=== PATIENT | female | born 1945 | race Caucasian/White ===

== ENCOUNTER 2019-06-29 12:36 | Outpatient (CLI) | payer MEDICARE, BC ==
--- NOTE | 2019-06-29 13:55 | MRI ---
MR the lumbar spine without contrast: 06/29/2019 History: Fall, leg pain COMPARISON: None available TECHNIQUE: Multiplanar multisequence MR images were obtained of lumbar spine without IV contrast FINDINGS: On the basis of 5 lumbar type vertebral bodies, conus medullaris terminates at [id number] level. The sagittal STIR imaging demonstrates increased signal intensity on the basis of marrow edema at the L2 level. This is likely on the basis of acute fracture of the inferior endplate. No obvious osseous retropulsion. Please note that detailed assessment of the lumbar spine is markedly limited se condary to prominent patient motion artifact, particularly on the sagittal imaging. T12-L1:There is bilateral facet hypertrophy with disc space narrowing, disc desiccation, and mild dis c bulge. No significant central canal or neural foraminal stenosis. L1-2:Disc space narrowing, disc desiccation, and mild disc bulge. No significant central canal stenos is. Significant bilateral facet hypertrophy. Mild/moderate bilateral neural foraminal stenosis, left greater than right. L2-3:There is disc space narrowing and disc desiccation. There is a disc osteophyte complex with mild central canal stenosis. There is bilateral facet hypertrophy, left greater than right. Mild right and moderate left neural foraminal stenosis. L3-4:There is disc space narrowing with disc desiccation and posterior disc osteophyte complex. Mild central canal stenosis with moderate left lateral recess stenosis. Mild right neural foraminal stenosis and severe left neural foraminal stenosis. L4-5:There is disc desiccation with disc bulge and prominent bilateral facet hypertrophy/hypertrophy of the ligamentum flavum. There is moderate central canal stenosis/left lateral recess stenosis. There is mild bilateral neural foraminal stenosis. L5-S1:There is disc space narrowing with disc desiccation and mild disc bulge. There is prominent kapil ateral facet hypertrophy with severe right and mild left neural foraminal stenosis. Image retroperitoneal structures demonstrateno acute findings.. IMPRESSION: The study is quite limited secondary to motion artifact. Increased STIR signal on the basis of marrow edema noted within the L2 vertebral body suggesting acute fracture of the inferior endplate. No osseous retropulsion. This may be better assessed via CT examination of the lumbar spine. Prominent multilevel lumbar spine degenerative change as detailed above.
== END 2019-06-29 12:37 | disposition home or self-care (01) ==
LOC: TBSIIMAG 12:36
PROVIDERS: ATTEND Specialist
DX: M54.17 Radiculopathy, lumbosacral region (principal); M48.07 Spinal stenosis, lumbosacral region; R60.0 Localized edema; R93.7 Abnormal findings on diagnostic imaging of other parts of musculoskeletal system; M47.816 Spondylosis without myelopathy or radiculopathy, lumbar region
CPT/HCPCS: 72148

== ENCOUNTER 2020-04-23 19:07 | Inpatient (IN) | payer MEDICARE, BC ==
[~2020-04-23 19:07] MED LIST: Iopamidol-370 76% 500 ML 1 ML ONE
--- NOTE | 2020-04-23 19:24 | CT ---
CT HEAD WITHOUT IV CONTRAST COMPARISON: None HISTORY: Stroke alert. Right-sided weakness and right-sided facial droop with a aphasia. TECHNIQUE: Axial CT imaging at 5 mm intervals from vertex through skull base without contrast FINDINGS: There is decreased attenuation in the periventricular white matter which is nonspecific but likely re flective of chronic small vessel ischemic changes. There is mild cerebral volume loss. The ventricular system is normal in size, shape, and position for the degree of sulcal atrophy. There is no evidence of an acute infarction, hemorrhage, mass effect, or midline shift. Skull base has a normal CT appearance. Visualized paranasal sinuses are clear. Osseous structures appear intact. IMPRESSION: 1. No acute intracranial abnormality demonstrated. 2. Chronic small vessel ischemic changes and cerebral volume loss. 3. Above findings discussed Dr. Cordoba in the emergency department on 04/23/2020 at 1921 hours
[2020-04-23 19:27] LABS: #Eosinphils 0.1 thou/uL (0.0-0.7); #Lymphocytes 1.4 thou/uL (1.20-3.40); #Monocytes 0.5 thou/uL (0.11-0.59); #Neutrophils 1.8 thou/uL (1.40-6.50); %Basophils 0.2 % (0.0-1.0); %Lymphocytes 37.2 % (21.0-51.0); %Monocytes 13.2 % (0.0-10.0); %Neutrophils 47.4 % (42.0-75.0); Mean Corpuscular HGB CONC 35.6 g/dL (32.0-36.0); Mean Corpuscular Volume 95.4 fL (78.0-98.0); Mean Platelet Volume 7.4 fL (7.4-10.4); Platelet Count 172 thou/uL (130-400); RBC Distribution Width 11.4 % (11.5-14.5); Red Blood Cell (RBC) Count 3.54 mill/uL (4.20-5.40); White Blood Cell (WBC) Count 3.7 thou/uL (4.8-10.8)
[2020-04-23 19:39] LABS: PTT 24.3 sec (22.9-36.1)
[2020-04-23 19:40] LABS: Prothrombin Time 13.5 sec (12.0-14.7)
[2020-04-23 19:41] LABS: ALT (SGPT) 16 U/L (8-55); AST (SGOT) 24 U/L (5-34); Albumin 3.9 g/dL (3.4-4.8); Alkaline Phosphatase 81 U/L (40-110); Anion Gap 16 mmol/L (10-20); BUN (Urea Nitrogen) 12 mg/dL (9.8-20.1); Bilirubin, Total 0.2 mg/dL (0.2-1.2); CK (CPK) 67 U/L (29-168); Calc. Creatinine Clearance 0 mL/min (70-130); Calcium 8.6 mg/dL (7.8-10.44); Carbon Dioxide 24 mmol/L (23-31); Chloride 107 mmol/L (98-107); Estimated GFR-MDRD 60; Globulin 2.9 g/dL (2.4-3.5); Glucose 136 mg/dL (83-110); Potassium 4.5 mmol/L (3.5-5.1); Protein, Total 6.8 g/dL (6.0-8.3); Sodium 142 mmol/L (136-145)
--- NOTE | 2020-04-23 20:38 | RAD ---
EXAM: CHEST ONE VIEW HISTORY: Injury after falling at home. Right-sided facial droop and right-sided weakness. COMPARISON: None FINDINGS: The cardiac silhouette and pulmonary vasculature are within normal limits. No consolidation or pleura l fluid is seen. No obvious pneumothorax is identified, and there is no pleural fluid. There is mild increased density seen in the right midlung zone and at the right lung base also present on prio r study and may be related to area of scarring. There are right lateral rib fractures involving the third, fourth, and fifth ribs. Right lateral seco nd rib is obscured due to overlying structures. There is mild S-shaped scoliotic curvature of thoracolumbar spine. Osteopenia is present. Surgical clips again overlie each axillary region. IMPRESSION: Mildly displaced lateral right third, fourth, and fifth rib fractures. No obvious pneumothorax is see n, and there is no pleural effusion identified.
--- NOTE | 2020-04-23 20:46 | PDOC.FPRHP ---
- History of Present Illness Chief Complaint: R sided facial droop, R sided weakness History of Present Illness: 74 yo F presented via EMS after an unwitnessed fall at home. Daughter that lives with patient heard a noise and found patient lying on the floor of her bedroom. The right side of the patient's face was drooping, she was drooling and unable to form words. Patient's other daughter, Megan Montemayor, who is MPOA and a senior salesforce developer was present during our interview. She explains her mother has no history of strokes other than a possible TIA many years ago. She lives with the daughter that found her after the fall and typically performs all her own ADLs. Patient was unable to communicate effectively due to her expressive aphasia but did express that she was in pain. Her daughter explains she has chronic back pro blems and a known L1 and L4 compression fracture. ED Course: CTA revealed an occlusion of the left MCA and tPA therapy was initiated. - Allergies/Adverse Reactions Allergies Allergy/AdvReac Type Severity Reaction Status Date / Time iodine Allergy Verified 04/23/20 21:45 shellfish derived Allergy Verified 04/23/20 21:45 - Home Medications Medication Instructions Recorded Confirmed Type Albuterol Sulfate [Proventil Hfa] 90 mcg INH DAILY PRN 04/24/20 04/24/20 History Aspirin [Aspirin EC] 81 mg PO DAILY 04/24/20 04/24/20 History Atorvastatin Calcium 40 mg PO DAILY 04/24/20 04/24/20 History Baclofen 10 mg PO BID 04/24/20 04/24/20 History Calcium Citrate/Vitamin D3 250 mg PO BID 04/24/20 04/24/20 History [Citracal Regular 250 mg + D] Candesartan Cilexetil 32 mg PO DAILY 04/24/20 04/24/20 History Chromium Picolinate 1,000 mcg PO DAILY 04/24/20 04/24/20 History Dicyclomine [Bentyl] 20 mg PO DAILY 04/24/20 04/24/20 History Diphenoxylate HCl/Atropine 2 each PO DAILY 04/24/20 04/24/20 History [Diphenoxylate-Atrop 2.5-0.025] Ferrous Sulfate 325 mg PO DAILY 04/24/20 04/24/20 History Flecainide [Tambocor] 50 mg PO BID 04/24/20 04/24/20 History Fluticasone Propionate [Flonase 1 spray EA NARE DAILY 04/24/20 04/24/20 History Allergy Relief] Levothyroxine Sodium 25 mcg PO DAILY 04/24/20 04/24/20 History Meloxicam 7.5 mg PO BID 04/24/20 04/24/20 History Metaxalone 800 mg PO BID 04/24/20 04/24/20 History Ondansetron [Zofran ODT] 4 mg SL Q8HR PRN 04/24/20 04/24/20 History Phenazopyridine HCl 200 mg PO DAILY 04/24/20 04/24/20 History Pramipexole Di-HCl [Pramipexole 0.25 mg PO DAILY PRN 04/24/20 04/24/20 History Dihydrochloride] Pregabalin 100 mg PO DAILY 04/24/20 04/24/20 History Tamoxifen Citrate 20 mg PO HS 04/24/20 04/24/20 History Venlafaxine HCl 75 mg PO TID 04/24/20 04/24/20 History Verapamil HCl [Verapamil ER] 240 mg PO HS 04/24/20 04/24/20 History busPIRone HCl [Buspirone HCl] 15 mg PO BID 04/24/20 04/24/20 History guaiFENesin [Mucinex] 600 mg PO BID 04/24/20 04/24/20 History hydrOXYzine HCl [Hydroxyzine HCl] 25 mg PO DAILY 04/24/20 04/24/20 History oxyCODONE HCl [Oxycodone HCl] 5 mg PO Q8HR 04/24/20 04/24/20 History tiZANidine HCl [Tizanidine HCl] 2 mg PO HS 04/24/20 04/24/20 History - History PMHx: back pain, HTN, incontinence, breast cancer 1998 and 2017 PSHx: double mastectomy, cholecystectomy, hysterectomy, partial and total knee replacement FHx: Non-contributory Social: Denies tobacco, alcohol, marijuana, or drug use - Review of Systems ROS unobtainable: other (due to expressive aphasia) Musculoskeletal: reports: pain (back pain) - Vital signs BP: 164/68 HR: 79 RR: 14 Tmax: 100.1 Pox: 97% on 2L Wt: 67kg - Physical Exam HEENT: normocephalic and atraumatic, no scleral icterus, grossly normal hearing, other (unable to assess EOM possibly due to receptive aphasia-patient stared at my face but did not move her eyes) Neck: FROM Heart: RRR, no murmurs/rubs/gallops, pulses present, no edema Lungs: CTAB, no respiratory distress, good air movement, no wheezing Abdomen: soft, non-tender, bowel sounds present Musculoskeletal: ROM grossly normal Neurological: DTRs 2+, other (decreased strength in R UE, no facial droop, aphasia present) Heme/Lymphatic: no unusual bruising or bleeding Psychiatric: normal mood and affect FMR H&P: Results - Labs Result Diagrams: 04/23/20 19:14 04/23/20 19:14 Lab results: WBC 3.7 thou/uL (4.8-10.8) L 04/23/20 19:14 Hgb 12.0 g/dL (12.0-16.0) 04/23/20 19:14 Hct 33.8 % (36.0-47.0) L 04/23/20 19:14 MCV 95.4 fL (78.0-98.0) 04/23/20 19:14 Plt Count 172 thou/uL (130-400) 04/23/20 19:14 Neutrophils % 47.4 % (42.0-75.0) 04/23/20 19:14 Sodium 142 mmol/L (136-145) 04/23/20 19:14 Potassium 4.5 mmol/L (3.5-5.1) 04/23/20 19:14 Chloride 107 mmol/L (98-107) 04/23/20 19:14 Carbon Dioxide 24 mmol/L (23-31) 04/23/20 19:14 BUN 12 mg/dL (9.8-20.1) 04/23/20 19:14 Creatinine 0.91 mg/dL (0.6-1.1) 04/23/20 19:14 Glucose 136 mg/dL (83-110) H 04/23/20 19:14 Calcium 8.6 mg/dL (7.8-10.44) 04/23/20 19:14 Total Bilirubin 0.2 mg/dL (0.2-1.2) 04/23/20 19:14 AST 24 U/L (5-34) 04/23/20 19:14 ALT 16 U/L (8-55) 04/23/20 19:14 Alkaline Phosphatase 81 U/L (40-110) 04/23/20 19:14 Creatine Kinase 67 U/L (29-168) 04/23/20 19:14 Serum Total Protein 6.8 g/dL (6.0-8.3) 04/23/20 19:14 Albumin 3.9 g/dL (3.4-4.8) 04/23/20 19:14 - Radiology Interpretation Other Status: report reviewed by me (CTA: M2 occlusion of left MCA) Chest x-ray Status: report reviewed by me (R 3,4,5 rib fracture, no pneumothorax) CT scan - head Status: report reviewed by me (chronic small vessel ischemic changes, cerebral volume loss) FMR H&P: A/P - Plan 74 yo F complaining of R sided facial droop, R sided weakness and aphasia Ischemic infarct of left MCA - post tPA -R sided deficits were resolved upon our interview but expressive aphasia persisted -CT brain: chronic smal vessel ischemic changes, cerebral volume loss -CTA: M2 occlusion of left MCA -goal of SBP< 180, DBP <95 -NPO, strict bed rest -speech, PT, OT consulted -Neurology and Stroke team consulted -lipids, thyroid, a1c pending -Echo pending -MRI pending Rib Fractures -CXR revealed right 3,4,5 rib fractures. no signs of pneumothorax -Aware -fentanyl 50 for pain control L1 and L4 compression fractures -known history. Was scheduled for kyphoplasty on Tuesday -fentanyl for pain control HTN -hold home meds DVT PPx: tPA Diet: NPO strict Code: FULL PCP: [facility] Dispo: eLOS >48hrs pending neurology and stroke team evaluation FMR H&P: Upper Level - Plan Date/Time: 04/23/202045 ISurinder DO, have evaluated this patient and agree with findings/plan as outlined by director internal control resident. Pertinent changes/additions are listed here. 74 yo F w/ pmhx sig for htn, prev TIA, chronic pain with lumbar fx Earlier this evening her daughter who lives with her found her on the floor with garbled speech and R sided weakness. taken to ED and given TPA within window, since that time she has had waxing and waning improvement in her R sided strength. on our exam she has equal strength b/l with some receptive and e xpressive aphasia. At baseline she is totally independent. no symptoms reported prior to episode tonight. xray sig for rib fxs, fentanyl given in ED. CTA sig for occlusion at proximal M2 branch of middle cerebral. Neurosurgery contacted in ED and recommended no mechanical thrombectomy. labs wnl, ekg sinus, wo st changes. ua wnl. Will admit to ICU for monitoring of ischemic cva likely in L MCA distribution s/p tpa. npo, bp guidelines per tpa protocol, labetolol and nicardipine available prn. stroke team consulted. will risk stratify and order further dx testing to identify a possible source. Control pain from mildly displaced rib fxs and chronic lumbar fxs with fentanyl. no invasive procedures for 24 hrs, repeat mri at that time along with resuming asa and statin therapy. consider adding clopidogrel at this time as well as pt has already failed asa monotherapy. See director internal control note for mgmt of chronic problems. Addendum - Attending - Attending Attestation Date/Time: 04/24/201928 I personally evaluated the patient and discussed the management with Dr. Orr/Mikey. I agree with the History, Examination, Assessment and Plan documented above with any addition or exceptions noted below. I saw and evaluated the patient on the evening of 04/23/20. patient presented from home with a fall and sudden onset right sided weakness/paralysis with aphasia. Found to have M2 left MCA occlusion and was s/p tPA. admitted to ICU for management. Stroke team consulted. CVA evaluation underway.
[2020-04-23] MEDS ORDERED: Fentanyl 100 MCG/2 ML VIAL ONE (20:49)
[2020-04-23] MEDS ORDERED: Famotidine/PF 20 mg/2ml Vial ONE (20:59)
[2020-04-23] MEDS ORDERED: methylPREDNISolone Sod Succ/PF 125 MG/2 ML VIAL ONE (20:59)
[2020-04-23] MEDS ORDERED: diphenhydrAMINE 50 MG/ML VIAL ONE (20:59)
[2020-04-23 21:09] LABS: Bilirubin Negative (Negative); Blood, Urine Negative (Negative); Glucose, Urine (Dipstick) Negative (Negative); Ketone, Urine Negative (Negative); Leukocyte Negative (Negative); Nitrite Negative (Negative); Protein, Urine (Dipstick) Negative (Neg-Trace); Urobilinogen 0.2 mg/dL (Less than 2); pH, Urine 6.5 (5.0-9.0)
[2020-04-23 21:12] LABS: Clarity Clear (Clear)
[2020-04-23 21:13] LABS: Specific Gravity, Urine 1.013 (1.002-1.036)
[2020-04-23] MEDS ORDERED: hydrALAZINE 20 MG/ML VIAL SLOW IVP PRN (21:25)
[2020-04-23] MEDS ORDERED: NO ANTITHROMBOTICS FS SCH (21:25)
[2020-04-23] MEDS ORDERED: Fentanyl 100 MCG/2 ML VIAL SLOW IVP PRN (21:46)
[2020-04-23 22:09] LABS: Hemoglobin A1c 5.4 % (4.0-6.0)
[2020-04-23 22:19] LABS: Cardiac Risk 3.3 (Less than 4.5)
[2020-04-24] MEDS: Lactated Ringer's 1,000 ML IV SCH ×3 (02:00→22:39)
[2020-04-24] MEDS: Labetalol HCl 100 MG/20 ML VIAL SLOW IVP PRN ×3 (02:00→21:19)
[2020-04-24] MEDS ORDERED: Labetalol HCl 100 MG/20 ML VIAL ONE (02:03)
--- NOTE | 2020-04-24 07:25 | PDOC.FM ---
- Subjective Subjective: Patient feeling a little better this morning. Is able to answer in short brief 2-3 word responses. Answers most yes/no questions appropriately but does get visually frustrated at times when trying to respond. Her eyes track as people move around the room but does not follow commands to move eyes. She is able to follow commands to lift arms and legs, squeeze hands. When asked to push down on feet she lifts her legs instead. She cannot state her name but does respond to "Ms. Baiely" and asked if daughter's name is "Megan" she nods her head yes. When asked if in any pain she points to her back and states "a little". - Objective MAR Reviewed: Yes Vital Signs & Weight: Vital Signs (12 hours) Pulse BP 04/24/20 02:00 77 185/109 H Result Diagrams: 04/23/20 19:14 04/23/20 19:14 Phys Exam - Physical Examination Constitutional: NAD HEENT: moist MMs Neck: no JVD, supple Respiratory: clear to auscultation bilateral Cardiovascular: RRR, no significant murmur Gastrointestinal: soft, no distention Musculoskeletal: no edema, pulses present Neurological: moves all 4 limbs music pastor strength 3/5, LE strength not testable but able to life both legs Psychiatric: normal affect Deviation from normal: oriented to person, unable to assess time & place Skin: no rash, normal turgor Dx/Plan (1) Acute CVA (cerebrovascular accident) Code(s): I63.9 - CEREBRAL INFARCTION, UNSPECIFIED Status: Acute (2) Hypertension Code(s): I10 - ESSENTIAL (PRIMARY) HYPERTENSION Status: Acute Qualifiers: Hypertension type: unspecified Qualified Code(s): I10 - Essential (primary) hypertension (3) Compression fracture of lumbar vertebra Code(s): S32.000A - WEDGE COMPRESSION FRACTURE OF UNSP LUMBAR VERTEBRA, INIT Status: Acute Qualifiers: Encounter type: subsequent encounter Lumbar vertebra fracture level: L1 (4) Ribs, multiple fractures Code(s): S22.49XA - MULTIPLE FRACTURES OF RIBS, UNSP SIDE, INIT FOR CLOS FX Status: Acute Qualifiers: Encounter type: initial encounter Fracture type: closed Laterality: bilateral Qualified Code(s): S22.43XA - Multiple fractures of ribs, bilateral, initial encounter for closed fracture - Plan Plan: 74 yo F complaining of R sided facial droop, R sided weakness and aphasia Ischemic infarct of left MCA - status post tPA -R sided deficits now resolved s/p tPA, persistent expressive aphasia & facial droop -CT brain: chronic smal vessel ischemic changes, cerebral volume loss -CTA: M2 occlusion of left MCA -place on Nicardipene (Cardene) drip, titrate with goal of SBP< 180, DBP <95 -NPO, strict bed rest, sitter in room -speech, PT, OT consulted -Neurology, Dr. Mcdonald consulted, appreciate recs -Stroke team consulted -Lipids with total chol 133/LDL 52/HDL 40/Triglycerides 203, TSH 0.49, a1c 5.4% -Echo pending -MRI pending Rib Fractures -CXR revealed right 3,4,5 rib fractures. no signs of pneumothorax -Aware -fentanyl 50 for pain control L1 and L4 compression fractures -known history. Was scheduled for kyphoplasty on Tuesday -fentanyl for pain control HTN -hold home meds DVT PPx: tPA Diet: NPO strict Code: FULL PCP: [facility] Dispo: Stable, admitted to inpatient in CCU. Currently pending neurology and stroke team evaluation today. Anticipate discharge in >48hrs.
--- NOTE | 2020-04-24 09:17 | CT ---
CT of thehead: 04/24/2020 COMPARISON: 04/23/2020 HISTORY:Evaluate following TPA administration TECHNIQUE: Serial axial CT imaging at5 mm intervals from thevertex through skull base without contras t. Findings:Imaged paranasal sinuses and mastoid air cells are well-aerated. No displaced calvarial frac ture. No intracranial hemorrhage, midline shift, or mass effect. There is subtle new hypodensity in the insular region on the left. There is questionable mild new hyp odensity within the deep white matter of the left frontal lobe. No intracranial hemorrhage, midline shift, or mass effect. Impression:No intracranial hemorrhage is seen. Questionable subtle new hypodensity within the left MC A territory which could reflect interval infarction. Brain MRI suggested.
[2020-04-24] MEDS ORDERED: Lorazepam 2 MG/ML VIAL SLOW IVP SCH (09:30)
[2020-04-24] MEDS ORDERED: Fentanyl 100 MCG/2 ML VIAL ONE (09:35)
[2020-04-24] MEDS ORDERED: Lorazepam 2 MG/ML VIAL ONE (09:35)
--- NOTE | 2020-04-24 10:56 | MRI ---
MRI of thebrain: 04/24/2020 COMPARISON:None available HISTORY:Recent acute stroke protocol status post TPA administration TECHNIQUE: Multiplanar multisequence MR imaging of thebrain without contrast Findings:This study is markedly limited secondary to patient head motion artifact. The diffusion weig hted imaging demonstrates areas of acute infarction on the left including a focus of acute infarction within the insula measuring 1 cm. There are also linear areas of restricted diffusion cons istent with acute infarction involving the deep and subcortical region of the posterior left frontal region. Further superiorly there is a 5-6 mm focus of restricted diffusion within the superio r posterior medial aspect of the left frontal lobe just lateral to the posterior aspect of the body of the left lateral ventricle. Findings are consistent with scattered small areas of acute infarction within the left MCA territory. The axial gradient echo imaging is markedly limited secondary to motion. There is a focus of blooming artifact on the left measuring approximately 7-8 mm. This is somewhat linear in distribution and is in the region of the sylvian fissure. This could represent blooming artifact associated with a rey t within a left M2 branch. A less likely consideration is a focus of intracranial hemorrhage as no intracranial hemorrhage is seen in this region on recent head CT. Severe motion artifact on the axial T2 and FLAIR imaging renders these sequences nondiagnostic. Sagittal T1 weighted imaging demonstrates no acute abnormality, limited secondary to motion. IMPRESSION:Scattered areas of restricted diffusion on the left consistent with left MCA infarction. M arkedly limited study secondary to motion. Somewhat linear subcentimeter focus of blooming artifact on the left likely correlates with clot within a left M2 branch. Follow-up head CT is suggested kenroy jackson to the less likely possibility of small volume intracranial hemorrhage.
[2020-04-24] MEDS ORDERED: Albuterol Sulfate 1.25 MG/3 ML NEB INH PRN (12:15)
--- NOTE | 2020-04-24 12:37 | CT ---
EXAM: CT angiogram head and neck with IV contrast and 3-D reconstructions PROVIDED CLINICAL HISTORY: Stroke alert. Patient complains of right-sided weakness, right-sided facial droop, and a aphasia. COMPARISON: Noncontrast CT head on 04/23/2020 FINDINGS: There is a normal arrangement of the great vessels at the aortic arch which are patent. Mild vascular calcifications are seen in the aortic arch and involving the origins of the great vessels. The innominate artery is patent. Portion of the right subclavian artery is obscured due to dense venous c ontrast resulting in artifact but is otherwise patent. The origin of the right common carotid arteries also limited due to artifact. There is a kink present in the left subclavian artery, but the left subclavian artery is otherwise patent. Common carotid arteries are tortuous bilaterally. The bilateral internal carotid arteries are patent. The bilateral vertebral arteries appear to be patent, but the left vertebral artery is dominant. Righ t vertebral artery is generally small in caliber and predominantly terminates in PICA with small branch supplying the basilar artery. The basilar artery is small in caliber but patent. There are origins of each posterior cerebral artery which are patent. There are vascular calcifications seen involving the carotid siphons. Bilateral anterior cerebral arteries and right middle cerebral artery are patent; however, there is e vidence of occlusion of the proximal M2 segment of the left middle cerebral artery. Degenerative changes are seen in the spine. There is trace anterolisthesis of C4 on C5 related to fac et degenerative changes. Trace mucosal thickening is present in each maxillary antrum. There is question of bilateral medial a ntrectomies. IMPRESSION: Occlusion of the proximal M2 segment left middle cerebral artery. Above findings discussed with Dr. Cordoba in the emergency on 10/08/2019 at 1951 hours. Transcribed Date/Time: 04/24/2020 12:37 PM
[2020-04-24] MEDS: Fentanyl 100 MCG/2 ML VIAL SLOW IVP SCH ×2 (13:15→20:28)
[2020-04-24] MEDS: Lorazepam 2 MG/ML VIAL SLOW IVP PRN ×2 (13:47→21:12)
--- NOTE | 2020-04-24 14:13 | CON ---
NEUROLOGY CONSULTATION DATE OF CONSULTATION: 04/24/2020 REASON FOR CONSULTATION: Right facial droop with right hemiparesis. HISTORY OF PRESENT ILLNESS: Ms. Bailey is a 74-year-old female with medical history significant for hypertension, breast cancer, urinary incontinence, hypertension, and back pain, presented to the emergency room by EMS after unwitnessed fall at home. Per daughter who lives with the patient, she heard a noise and found her on the floor. The patient had right facial droop and she was unable to communicate effectively. The patient's other daughter who is a ambulatory care was present in the emergency room at the time of the initial evaluation. She has no history of strokes, but she had a possible TIA several years ago. The patient lives with her daughter and according to the daughter, she is fully independent and is able to perform all her activities of daily living. The patient's daughter got concerned because of the right facial droop and she also was weak on the right side and unable to communicate appropriately, so decided to bring her to the emergency room for further evaluation. In the emergency room, head CT was done, which was negative for acute intracranial pathology. CTA showed an occlusion of the left MCA and tPA was initiated last night. REVIEW OF SYSTEMS: Limited secondary to the patient's expressive aphasia. ALLERGIES: IODINE, SHELLFISH DERIVED PRODUCTS. PAST MEDICAL HISTORY: Back pain, hypertension, urinary incontinence, breast cancer. PAST SURGICAL HISTORY: Double mastectomy, cholecystectomy, hysterectomy, partial and total knee replacement. FAMILY HISTORY: No significant family history. SOCIAL HISTORY: The patient lives with her daughter. Denies smoking, alcohol, or illegal drug abuse. Vital Signs & Weight: Vital Signs (12 hours) Pulse BP 04/24/20 02:00 77 185/109 H PHYSICAL EXAMINATION: HEENT: normocephalic and atraumatic Neck: FROM Heart: RRR, no murmurs/rubs/gallops, pulses present, no edema Lungs: CTAB, no respiratory distress, good air movement, no wheezing Abdomen: soft, non-tender, bowel sounds present Musculoskeletal: ROM grossly normal Neurological: Mental status: The patient is alert and oriented to person, place, and time. She does have expressive aphasia. Cranial nerves 2 through 12 intact except 7, mild right facial droop, and 10, mild dysarthria. Motor: Muscle tone and bulk are normal. Strength is 5/5 in the left upper and lower extremity, 3+/5 in the right upper extremity, and 4/5 in the right lower extremity. Cerebellar: Slow on the right secondary to weakness. Gait: Deferred due to the patient's safety reasons. DATA REVIEWED: I reviewed the CT scan, which was negative for acute intracranial pathology. CTA showed M2 occlusion of the left MCA. Chest x-ray was essentially unremarkable except rib fracture in 3, 4, and 5 ribs. 04/23/20 19:14 Lab results: WBC 3.7 thou/uL (4.8-10.8) L 04/23/20 19:14 Hgb 12.0 g/dL (12.0-16.0) 04/23/20 19:14 Hct 33.8 % (36.0-47.0) L 04/23/20 19:14 MCV 95.4 fL (78.0-98.0) 04/23/20 19:14 Plt Count 172 thou/uL (130-400) 04/23/20 19:14 Neutrophils % 47.4 % (42.0-75.0) 04/23/20 19:14 Sodium 142 mmol/L (136-145) 04/23/20 19:14 Potassium 4.5 mmol/L (3.5-5.1) 04/23/20 19:14 Chloride 107 mmol/L (98-107) 04/23/20 19:14 Carbon Dioxide 24 mmol/L (23-31) 04/23/20 19:14 BUN 12 mg/dL (9.8-20.1) 04/23/20 19:14 Creatinine 0.91 mg/dL (0.6-1.1) 04/23/20 19:14 Glucose 136 mg/dL (83-110) H 04/23/20 19:14 Calcium 8.6 mg/dL (7.8-10.44) 04/23/20 19:14 Total Bilirubin 0.2 mg/dL (0.2-1.2) 04/23/20 19:14 AST 24 U/L (5-34) 04/23/20 19:14 ALT 16 U/L (8-55) 04/23/20 19:14 Alkaline Phosphatase 81 U/L (40-110) 04/23/20 19:14 Creatine Kinase 67 U/L (29-168) 04/23/20 19:14 Serum Total Protein 6.8 g/dL (6.0-8.3) 04/23/20 19:14 Albumin 3.9 g/dL (3.4-4.8) 04/23/20 19:14 - Radiology Interpretation Other Status: report reviewed by me (CTA: M2 occlusion of left MCA) Chest x-ray Status: report reviewed by me (R 3,4,5 rib fracture, no pneumothorax) CT scan - head Status: report reviewed by me (chronic small vessel ischemic changes, cerebral volume loss) ASSESSMENT AND PLAN: (1) Acute CVA (cerebrovascular accident) Code(s): I63.9 - CEREBRAL INFARCTION, UNSPECIFIED Status: Acute (2) Hypertension Code(s): I10 - ESSENTIAL (PRIMARY) HYPERTENSION Status: Acute Qualifiers: Hypertension type: unspecified Qualified Code(s): I10 - Essential (primary) hypertension (3) Compression fracture of lumbar vertebra Code(s): S32.000A - WEDGE COMPRESSION FRACTURE OF UNSP LUMBAR VERTEBRA, INIT Status: Acute Qualifiers: Encounter type: subsequent encounter Lumbar vertebra fracture level: L1 (4) Ribs, multiple fractures Code(s): S22.49XA - MULTIPLE FRACTURES OF RIBS, UNSP SIDE, INIT FOR CLOS FX Status: Acute Qualifiers: Encounter type: initial encounter Fracture type: closed Laterality: bilateral Qualified Code(s): S22.43XA - Multiple fractures of ribs, bilateral, initial encounter for closed fracture Ms. Adela Bailey is a 74-year-old female who presented with right facial droop and right-sided weakness with receptive aphasia. The patient does have persistent expressive aphasia, but her facial droop and right-sided weakness have improved since admission according to the daughter. MRI of the brain reviewed, which was consistent with acute infarction in the left middle cerebral artery region. Monitor blood pressure and blood glucose, telemetry. No aspirin or anticoagulants 24 hours post tPA. Repeat head CT in 24 hours post tPA. If negative, then start aspirin and high-intensity statin for secondary stroke prevention. N.p.o. until cleared by Speech. Physical Therapy/Occupational Therapy/Speech. A 2D echo pending to evaluate left ventricular ejection fraction. Continue medical management per primary team. We will continue to follow. Thank you for the consult. Plan discussed in detail with the patient, the patient's daughter, and the nursing staff. Job ID: [id number] MTDD
[2020-04-24 14:58] LABS: SARS-CoV-2 MS2 Positive; SARS-CoV-2 N Gene Negative; SARS-CoV-2 S Gene Negative; SARS-CoV-2 by NAA Not Detected (NotDetected); SARS-CoV-2 orf1ab Negative
[2020-04-24] MEDS ORDERED: Haloperidol Lactate 5 MG/ML VIAL SLOW IVP PRN (19:18)
[2020-04-24] MEDS ORDERED: Haloperidol Lactate 5 MG/ML VIAL ONE (22:04)
[2020-04-24] MEDS ORDERED: Ziprasidone 20 MG VIAL ONE (22:43)
[2020-04-24] MEDS ORDERED: Ziprasidone 20 MG VIAL IM PRN (22:48)
[2020-04-24] MEDS ORDERED: Sterile Water 10 ML VIAL FS PRN (22:56)
[2020-04-24] MEDS: Flecainide 50 MG TAB PO SCH (23:25)
--- NOTE | 2020-04-24 23:52 | PDOC.EVN ---
Event Note - Event Note Event Note: nursing staff reports agitation with continual attempts to exit bed. pt unable to tolerate ct scan despite re-orientation and subsequent ativan and haldol. pt is at risk for serious harm with recent tpa administration, will add geodon, continue to re-orient, and apply 4point restraints. monitor for qt prolongation. consider precedex if pt continues to remain agitated. pain is controlled with fentanyl, no fever, or new neurologic deficits. pe otherwise wnl. daughter is aware of current situation.
[2020-04-25] MEDS: Labetalol HCl 100 MG/20 ML VIAL SLOW IVP PRN ×2 (02:03→02:38)
[2020-04-25] MEDS: Fentanyl 100 MCG/2 ML VIAL SLOW IVP SCH ×3 (02:30→03:29)
[2020-04-25] MEDS: Lactated Ringer's 1,000 ML IV SCH ×3 (07:06→18:11)
[2020-04-25] MEDS: Levothyroxine Sodium 25 MCG TAB PO SCH (07:06)
[2020-04-25] MEDS ORDERED: Fentanyl 100 MCG/2 ML VIAL SLOW IVP PRN (07:13)
[2020-04-25] MEDS ORDERED: Levothyroxine Sodium 200 MCG VIAL IVP SCH (07:15)
--- NOTE | 2020-04-25 07:17 | PDOC.FM ---
- Subjective Subjective: Patient had a very restless night, attempting to climb out of bed multiple times. Night team attempted Ativan, Haldol, and Geodon without relief of agitation. Patient then placed on Precedex drip and 4 point loose restraints. Still somewhat restless this morning and states she needs to get home. Daughter has remained at bedside throughout stay, including overnight. Daughter states that patient hallucinating and talking to relatives such as her father. Patient pain is controlled with Fentanyl. Patient's Tx GROUNDS WORKER Aware was reviewed. Appears she has been on Oxycodone 5 mg every 6 hour since at least January 2018. Also showed Pregabalin and Lorazepam history. - Objective MAR Reviewed: Yes Vital Signs & Weight: Vital Signs (12 hours) Temp Pulse BP Pulse Ox 04/25/20 02:38 103 H 196/129 H 04/25/20 02:31 96 04/25/20 02:03 116 H 183/96 H 04/25/20 00:00 98.7 F 04/24/20 21:19 98 192/105 H 04/24/20 20:00 98.9 F 96 Weight Weight 64.1 kg Most Recent Monitor Data Heart Rate from ECG 91 NIBP 121/81 NIBP BP-Mean 97 Respiration from ECG 22 SpO2 93 I&O: 04/24/20 04/25/20 04/26/20 06:59 06:59 06:59 Intake Total 1833 Output Total 940 Balance 893 Result Diagrams: 04/23/20 19:14 04/23/20 19:14 Phys Exam - Physical Examination agitated, restless, oriented to person HEENT: moist MMs Neck: supple Respiratory: clear to auscultation bilateral Cardiovascular: RRR, no significant murmur Gastrointestinal: soft, no distention Musculoskeletal: no edema, pulses present Neurological: moves all 4 limbs Deviation from normal: agitated Skin: no rash, normal turgor Dx/Plan (1) Acute CVA (cerebrovascular accident) Code(s): I63.9 - CEREBRAL INFARCTION, UNSPECIFIED Status: Acute (2) Hypertension Code(s): I10 - ESSENTIAL (PRIMARY) HYPERTENSION Status: Acute Qualifiers: Hypertension type: unspecified Qualified Code(s): I10 - Essential (primary) hypertension (3) Compression fracture of lumbar vertebra Code(s): S32.000A - WEDGE COMPRESSION FRACTURE OF UNSP LUMBAR VERTEBRA, INIT Status: Acute Qualifiers: Encounter type: subsequent encounter Lumbar vertebra fracture level: L1 (4) Ribs, multiple fractures Code(s): S22.49XA - MULTIPLE FRACTURES OF RIBS, UNSP SIDE, INIT FOR CLOS FX Status: Acute Qualifiers: Encounter type: initial encounter Fracture type: closed Laterality: bilateral Qualified Code(s): S22.43XA - Multiple fractures of ribs, bilateral, initial encounter for closed fracture - Plan Plan: 74 yo F complaining of R sided facial droop, R sided weakness and aphasia Ischemic infarct of left MCA - status post tPA -R sided deficits now resolved s/p tPA, persistent expressive aphasia & improving facial droop -CT brain: chronic small vessel ischemic changes, cerebral volume loss repeat CT brain 04/24 after 24 hours tPA admin was similar to original -CTA: M2 occlusion of left MCA -place on Nicardipene (Cardene) drip, titrate with goal of SBP< 140, DBP <90 -additional Labetalol & Hydralazine prn -NPO, strict bed rest, sitter in room -speech, PT, OT consulted -Neurology, Dr. Mcdonald consulted, appreciate recs -resume ASA today -EEG pending -Stroke team consulted -Lipids with total chol 133/LDL 52/HDL 40/Triglycerides 203, TSH 0.49, a1c 5.4% -Echo: EF 55-60%, no thrombus seen, valves normal -MRI findings c/w CTA findings UTI -Urine culture positive for E. Coli, fever 100.6F -Start Rocephin (04/25) Rib Fractures -CXR revealed right 3,4,5 rib fractures. no signs of pneumothorax -Aware -fentanyl 50 for pain control currently, will plan to transition to Morphine 4 mg q 6 hrs today (will give 24 morphine equivalents daily) -GROUNDS WORKER reviewed, patient's current Morphine equivalent is 30 units daily when taking PO Oxycodone L1 and L4 compression fractures -known history. Was scheduled for kyphoplasty on Tuesday -fentanyl for pain control, transitioning to Morphine today HTN -hold home meds while on Nicardipine drip Hypothyroidism -resume home Levothyroxine, either 04/28 via IV form or resume PO form if pass Speech eval DVT PPx: tPA Diet: NPO strict Code: FULL PCP: [facility] Dispo: Stable, admitted to inpatient in CCU. Currently pending Speech, OT, & PT evaluation today. Anticipate discharge in >48hrs. Addendum - Attending - Attending Attestation Date/Time: 04/25/20 3098 I personally evaluated the patient and discussed the management with Dr. Rouse I agree with the History, Examination, Assessment and Plan documented above with any addition or exceptions noted below - Patient restless/agitated. Afebrile VSS. A/P: 1) Left MCA- s/p TPA - deficits improved except expressive aphasia and right hand weakness. Appreciate neurology assistance. Continue PT/OT/ST as tolerated. 2) HTN- continue cardene drip 3) Agitation- suspect may be due to withdrawal as patient has been on chronic opiates as well as multiple muscle relaxants. Started on scheduled morphine as well as prn ativan. Continue precedex.
[2020-04-25] MEDS: cefTRIAXone\\ROCEPHIN 1 GM in Sodium Chloride 0.9% 100 ML IVPB SCH (07:53)
--- NOTE | 2020-04-25 08:05 | CON ---
DATE OF CONSULTATION: HISTORY OF PRESENT ILLNESS: Adela Bailey is a 74-year-old female who came in last night with stroke-like symptoms, stroke alert, 4:30. She then has had CT head and MRI suggestive of a right MCA distribution infarct. She was given apparently tPA. She is now in the ICU, reason for consult. The patient is able to verbalize. Denies any pain or discomfort. PAST MEDICAL HISTORY: As outlined, pertinent for sleep apnea, hypertension, high cholesterol, reflux, diverticulitis, hypothyroidism. PREVIOUS SURGERIES: Mastectomy, bilateral knee surgery, hysterectomy. Denies any tobacco abuse, alcohol abuse. HOME MEDICATIONS: Includes long list; albuterol HFA, aspirin, calcium, baclofen, Synthroid 25, Flonase nasal spray, Tambocor 50 twice a day, Tambocor, pramipexole 0.25, tamoxifen 20, venlafaxine 75, verapamil 240, BuSpar 15 twice a day, guaifenesin, hydroxyzine, tizanidine 2 mg at bedtime. ALLERGIES: IODINE AND SHELLFISH. REVIEW OF SYSTEMS: Otherwise negative. PHYSICAL EXAMINATION: VITAL SIGNS: Temperature 98, blood pressure is elevated pulse 105, respiratory rate 18, sats 97% on room air. CHEST: No wheezing. No crackles. CARDIAC: Normal S1, S2. No gallops. ABDOMEN: Soft. No masses. DIAGNOSTIC STUDIES: Chest x-ray, nonspecific haziness that I see. No gross infiltrates. CT angio of neck and head shows occlusion of M2 segment, left middle cerebral artery. IMPRESSION: 1. Right MCA distribution CVA, status post tPA. 2. Sleep apnea, nonsmoker. 3. Breast cancer. She is on nicardipine to control blood pressure. Try and keep systolic less than 140, diastolic less than 80. Restart home medications when able to swallow. Pulmonary/Critical Care will follow while in the ICU. Consultation note 70 minutes, 50% direct patient care. Job ID: [id number]
[2020-04-25] MEDS ORDERED: FLU VACC QS2020-21(65YR UP)/PF 240 MCG/0.7 ML SYRINGE IM ONE (09:00)
[2020-04-25] MEDS: Flecainide 50 MG TAB PO SCH ×2 (09:06→20:04)
[2020-04-25] MEDS: hydrOXYzine 25 MG TAB PO SCH (09:07)
--- NOTE | 2020-04-25 09:18 | CT ---
PRELIMINARY REPORT/[facility]/EMERGENCY AFTER HOURS PROCEDURE: EXAM: CT Head Without Intravenous Contrast. CLINICAL HISTORY: Follow up stroke alert TECHNIQUE: Axial computed tomography images of the head/brain without intravenous contrast. COMPARISON: CT\SR - CT BRAIN WO CON - 04/24/2020 09:05 AM 3RD MATE FINDINGS: BRAIN: There is a subtle area of decreased attenuation again observed in the left insular region. The appear ance is not significantly changed from the prior examination. VENTRICLES: No hydrocephalus. ORBITS: The orbits are unremarkable. SINUSES AND MASTOIDS: Prior surgical changes are noted of the paranasal sinuses. SOFT TISSUES: No significant facial or scalp soft tissue swelling evident. No radiopaque foreign body is seen. BONES: No acute skull fracture. IMPRESSION: 1. No findings of acute intracranial hemorrhage. 2. A subtle low-attenuation focus within the insular region of the left cerebral hemisphere, without significant progression from prior examination of 04/24/2020. 3. Prior surgical changes of the paranasal sinuses. ELECTRONICALLY SIGNED BY: Pancho Crawford MD Apr 25, 2020 12:29:34 AM 3RD MATE This report is intended for review by the ordering physician only, in accordance of law. If you recei ve this report in error, please call [facility] at [phone]. FINAL REPORT CT OF BRAIN PERFORMED WITHOUT CONTRAST ENHANCEMENT: HISTORY: Stroke symptoms. COMPARISON: 04/24/2020 exam. FINDINGS: There is generalized ventricular and sulcal prominence. There is decreased attenuation to the periven tricular white matter suggesting chronic change. A subtle area of decreased attenuation in the left i nsular region is stable. There are no signs of any hemorrhage or mass effect. IMPRESSION: Essentially stable exam. No hemorrhage. Subtle areas of altered attenuation in left middle cerebral a rteries territory remains stable. Report in agreement with the preliminary report issued by [facility]. POS: [facility] – [place]
--- NOTE | 2020-04-25 09:42 | PRG ---
DATE OF SERVICE: 04/25/2020 SUBJECTIVE: female, status post CVA, status post tPA. OBJECTIVE: VITAL SIGNS: Temperature is 98, pulse 71, sats 98%, blood pressure 130/70. CHEST: No wheezing, no crackles. CARDIAC: Normal S1 and S2. No gallops. ABDOMEN: Soft. NEUROLOGIC: She is sedated with Precedex, Geodon, Haldol. LABORATORY DATA: Urine is showing E coli. ASSESSMENT AND PLAN: CVA, status post tPA, urinary tract infection. Continue supportive care in the ICU. Follow up CT in the next 12 to 48 hours. We will follow while in the ICU. Job ID: [id number]
[2020-04-25] MEDS: niCARdipine 25 MG in Sodium Chloride 0.9% 250 ML 250 ML IVPB PRN ×2 (10:14→12:26)
[2020-04-25] MEDS: Morphine 4 MG/ML VIAL SLOW IVP SCH ×3 (11:32→23:47)
[2020-04-25] MEDS: Lorazepam 2 MG/ML VIAL SLOW IVP PRN ×2 (13:05→20:55)
--- NOTE | 2020-04-25 13:57 | PDOC.EEG ---
Neurology EEG Report - Report Report: This EEG was performed using 24 channel [employer] video digital EEG machine with 24 disc electrodes. This was an extended 2 hours 3 minutes of EEG recording. Digital analysis of the EEG was done for Rocael and seizure detection which revealed no abnormalities. Background: The posterior background rhythm is not observed Photic stimulation: No response seen with photic stimulation. Hyperventilation: Not performed. Sleep: No stage change observed EEG diagnosis: Intermittent irregular theta activity seen throughout the recording . Absence of posterior background rhythm Clinical interpretation: This EEG is consistent with moderate generalized nonspecific cerebral dysfuncti on.
[2020-04-25] MEDS ORDERED: Lorazepam 2 MG/ML VIAL SLOW IVP SCH (14:00)
--- NOTE | 2020-04-25 14:01 | PDOC.NEUPN ---
- Subjective Encounter Date: 04/25/20 Subjective: Ms. Bailey is extremely agitated this morning. Per nursing staff, she has been extremely restless all night and was trying to get out of the bed. EEG negative for seizure activity. - Objective Vital Signs & Weight: Vital Signs (12 hours) Pulse BP Pulse Ox 04/25/20 02:38 103 H 196/129 H 04/25/20 02:31 96 04/25/20 02:03 116 H 183/96 H Weight Admit Weight 141 lb Weight 141 lb 5.061 oz Most Recent Monitor Data Heart Rate from ECG 118 NIBP 159/72 NIBP BP-Mean 94 Respiration from ECG 22 SpO2 95 I&O: 04/24/20 04/25/20 04/26/20 06:59 06:59 06:59 Intake Total 1833 Output Total 940 Balance 893 Result Diagrams: 04/23/20 19:14 04/23/20 19:14 Additional Labs: Accuchecks 04/24/20 22:34 POC Glucose 122 H Radiology Reviewed by me: Yes EKG Reviewed by me: Yes ROS - Review of Systems ROS unobtainable: due to mental status - Medication Medications: Active Medications Generic Name Dose Route Start Last Admin Trade Name Freq PRN Reason Stop Dose Admin Flecainide Acetate 50 mg 04/24/20 21:00 04/25/20 09:06 Flecainide 50 Mg Tab PO Not Given BID LUDA Haloperidol Lactate 2 mg 04/24/20 19:18 04/24/20 20:25 Haloperidol Lactate 5 Mg/Ml Vial SLOW IVP 04/25/20 19:19 2 mg ONE PRN Administration Agitation Hydroxyzine HCl 25 mg 04/25/20 09:00 04/25/20 09:07 Hydroxyzine 25 Mg Tab PO Not Given DAILY LUDA Lactated Ringer's 1,000 mls @ 100 mls/hr 04/23/20 22:00 04/25/20 08:02 Lactated Ringer's IV 1,000 mls .Q10H LUDA Administration Dexmedetomidine HCl 400 mcg/ 100 mls @ 0 mls/hr 04/25/20 01:00 04/25/20 08:50 Sodium Chloride IVPB 100 mls INF LUDA Administration Protocol Per Protocol Ceftriaxone Sodium 1 gm/ 100 mls @ 200 mls/hr 04/25/20 07:00 04/25/20 07:53 Sodium Chloride IVPB 100 mls Q24HR LUDA Administration Labetalol HCl 10 mg 04/23/20 21:25 04/25/20 02:38 Labetalol Hcl 100 Mg/20 Ml Vial SLOW IVP 10 mg Q10MIN PRN Administration SBP > 180 or DBP > 105 Levothyroxine Sodium 25 mcg 04/25/20 06:00 04/25/20 07:06 Levothyroxine Sodium 25 Mcg Tab PO Not Given 0600 LUDA Lorazepam 0.5 mg 04/24/20 12:46 04/25/20 13:05 Lorazepam 2 Mg/Ml Vial SLOW IVP 0.5 mg Q4H PRN Administration Anxiety/Agitation Morphine Sulfate 4 mg 04/25/20 12:00 04/25/20 11:32 Morphine 4 Mg/Ml Vial SLOW IVP 4 mg Q6HR LUDA Administration Sterile Water 1.2 ml 04/24/20 22:56 04/24/20 22:55 Sterile Water 10 Ml Vial FS 1.2 ml PRN PRN Administration GEODON RECONST. - Exam General Appearance: ill appearing Eye: PERRL ENT: normocephalic atraumatic Neck: supple Respiratory: CTAB Cardiovascular: RRR Gastrointestinal: soft Extremities: no cyanosis Skin: normal turgor Neurological: no new deficit Musculoskeletal: normal tone, no muscle wasting PSYCH: not oriented (Restless and extremely agitated) Results - Labs Result Diagrams: 04/23/20 19:14 04/23/20 19:14 Lab results: WBC 3.7 thou/uL (4.8-10.8) L 04/23/20 19:14 Hgb 12.0 g/dL (12.0-16.0) 04/23/20 19:14 Hct 33.8 % (36.0-47.0) L 04/23/20 19:14 MCV 95.4 fL (78.0-98.0) 04/23/20 19:14 Plt Count 172 thou/uL (130-400) 04/23/20 19:14 Neutrophils % 47.4 % (42.0-75.0) 04/23/20 19:14 Sodium 142 mmol/L (136-145) 04/23/20 19:14 Potassium 4.5 mmol/L (3.5-5.1) 04/23/20 19:14 Chloride 107 mmol/L (98-107) 04/23/20 19:14 Carbon Dioxide 24 mmol/L (23-31) 04/23/20 19:14 BUN 12 mg/dL (9.8-20.1) 04/23/20 19:14 Creatinine 0.91 mg/dL (0.6-1.1) 04/23/20 19:14 Glucose 136 mg/dL (83-110) H 04/23/20 19:14 Calcium 8.6 mg/dL (7.8-10.44) 04/23/20 19:14 Total Bilirubin 0.2 mg/dL (0.2-1.2) 04/23/20 19:14 AST 24 U/L (5-34) 04/23/20 19:14 ALT 16 U/L (8-55) 04/23/20 19:14 Alkaline Phosphatase 81 U/L (40-110) 04/23/20 19:14 Creatine Kinase 67 U/L (29-168) 04/23/20 19:14 Troponin I 0.020 ng/mL (< 0.028) 04/23/20 19:14 Serum Total Protein 6.8 g/dL (6.0-8.3) 04/23/20 19:14 Albumin 3.9 g/dL (3.4-4.8) 04/23/20 19:14 Urine Ketones Negative mg/dL (Negative) 04/23/20 19:53 Urine Blood Negative (Negative) 04/23/20 19:53 Urine Nitrite Negative (Negative) 04/23/20 19:53 Ur Leukocyte Esterase Negative (Negative) 04/23/20 19:53 - Radiology Interpretation CT scan - head Additional Comment: No evidence of hemorrhage or recent bleed PN A/P (1) Acute CVA (cerebrovascular accident) Code(s): I63.9 - CEREBRAL INFARCTION, UNSPECIFIED Status: Acute (2) Withdrawal complaint Code(s): R68.89 - OTHER GENERAL SYMPTOMS AND SIGNS Status: Acute (3) Compression fracture of lumbar vertebra Code(s): S32.000A - WEDGE COMPRESSION FRACTURE OF UNSP LUMBAR VERTEBRA, INIT Status: Acute Qualifiers: Encounter type: subsequent encounter Lumbar vertebra fracture level: L1 (4) Hypertension Code(s): I10 - ESSENTIAL (PRIMARY) HYPERTENSION Status: Acute Qualifiers: Hypertension type: unspecified Qualified Code(s): I10 - Essential (primary) hypertension (5) Ribs, multiple fractures Code(s): S22.49XA - MULTIPLE FRACTURES OF RIBS, UNSP SIDE, INIT FOR CLOS FX Status: Acute Qualifiers: Encounter type: initial encounter Fracture type: closed Laterality: bi lateral Qualified Code(s): S22.43XA - Multiple fractures of ribs, bilateral, initial encounter for closed fracture - Plan Daily Plan: plan discussed w/ family, PT/OT, speech therapy, DVT proph w/SCDs Ms. Bailey is a 74-year-old female with medical history significant for chronic pain on multiple pain medications and muscle relaxants presented to the emergency room with strokelike symptoms. She is status post TPA and has been doing very well yesterday morning but then her condition deteriorated and she became extremely restless and agitated. Head CT was done which was negative for new bleed. Most likely going through withdrawal from the multiple medications which she was unable to take since the last [address] reviewed which was negative for acute bleed post TPA. EEG reviewed which was negative for seizure activity. Neurochecks every 4 hours. Continue pain control. 2D echo results reviewed no thrombus or PFO. MRI of the brain when stable to assess acute intracranial process. Telemetry Permissive control of blood pressure at this time. Strict control of blood glucose Continue medical management per primary team. Plan discussed in detail with the patient daughter at bedside and also with the nursing staff.
--- NOTE | 2020-04-25 14:16 | PDOC.EEG ---
Neurology EEG Report - Report Report: This EEG was performed using 24 channel [employer] video digital EEG machine with 24 disc electrodes. This was an extended 2 hours 5minutes of EEG recording. Digital analysis of the EEG was done for Rocael and seizure detection which revealed no abnormalities. Background: The posterior background rhythm is 6-7 Hz. This is a nonsustained posterior background rhythm Photic stimulation: No response seen with photic stimulation. Hyperventilation: Not performed. Sleep: No stage change observed EEG diagnosis: Intermittent irregular theta activity seen throughout the recording . Slow nonsustained posterior background rhythm Clinical interpretation: This EEG is consistent with mild to moderate generalized nonspecific cerebral dysfunction.
[2020-04-25] MEDS: niCARdipine 50 MG in Sodium Chloride 0.9% 250 ML 230 ML IV SCH ×2 (15:32→20:12)
[2020-04-26] MEDS: niCARdipine 50 MG in Sodium Chloride 0.9% 250 ML 230 ML IV SCH (00:43)
[2020-04-26] MEDS: Lorazepam 2 MG/ML VIAL SLOW IVP PRN ×3 (02:12→20:08)
[2020-04-26] MEDS: Diltiazem 125 MG in Sodium Chloride 0.9% 100 ML IVPB SCH ×2 (03:34→14:31)
[2020-04-26 03:54] LABS: #Eosinphils 0.1 thou/uL (0.0-0.7); #Lymphocytes 1.8 thou/uL (1.20-3.40); #Monocytes 0.8 thou/uL (0.11-0.59); #Neutrophils 5.7 thou/uL (1.40-6.50); %Basophils 0.4 % (0.0-1.0); %Eosinophils 0.7 % (0.0-10.0); %Monocytes 9.8 % (0.0-10.0); %Neutrophils 68.2 % (42.0-75.0); Hemoglobin 11.6 g/dL (12.0-16.0); Mean Corpuscular HGB CONC 34.4 g/dL (32.0-36.0); Mean Corpuscular Hemoglobin 32.1 pg (27.0-31.0); Mean Corpuscular Volume 93.3 fL (78.0-98.0); Mean Platelet Volume 7.1 fL (7.4-10.4); Platelet Count 153 thou/uL (130-400); RBC Distribution Width 11.5 % (11.5-14.5); Red Blood Cell (RBC) Count 3.62 mill/uL (4.20-5.40); White Blood Cell (WBC) Count 8.4 thou/uL (4.8-10.8)
[2020-04-26 04:10] LABS: Anion Gap 17 mmol/L (10-20); BUN (Urea Nitrogen) 11 mg/dL (9.8-20.1); Calc. Creatinine Clearance 69 mL/min (70-130); Calcium 8.8 mg/dL (7.8-10.44); Carbon Dioxide 20 mmol/L (23-31); Chloride 109 mmol/L (98-107); Estimated GFR-MDRD 79; Glucose 112 mg/dL (83-110); Potassium 3.2 mmol/L (3.5-5.1); Sodium 143 mmol/L (136-145)
--- NOTE | 2020-04-26 04:15 | PDOC.BPN ---
- Brief Progress Note Encounter Date: 04/26/20 Encounter Time: 03:30 Received call from patient's nurse that an irregularity was noticed on monitor and an EKG was obtained which revealed Afib w/RVR, HR 168. Went to unit and assessed patient who was restrained in bed and still appeared agitated as she has been the majority of her hospitalization. Patient was still in Afib w/RVR. Patient received 10mg diltiazem and an diltiazem drip was initiated. Patient's BP was 140/65 before administration of diltiazem and SBP of 105 afterwards. Patient's cardene drip was discontinued at this time. Order AM labs CBC, BMP, TSH, Mg, Phos.
[2020-04-26] MEDS ORDERED: Potassium Chloride 20 MEQ in Premix Bag 1 BAG IVPB SCH (05:15)
[2020-04-26] MEDS: Morphine 4 MG/ML VIAL SLOW IVP SCH ×4 (05:30→23:27)
[2020-04-26] MEDS: Potassium Chloride 20 MEQ in Premix Bag 1 BAG IVPB SCH ×2 (05:33→08:15)
--- NOTE | 2020-04-26 06:27 | PDOC.FM ---
- Subjective Subjective: Nursing concerned with agitation. Went into afib with RVR and started on dilt drip. Precedex increased to 1.4mcg/min because of agitation and also required PRN ativan as well. - Objective Vital Signs & Weight: Vital Signs (12 hours) Temp Pulse BP Pulse Ox 04/26/20 03:28 155 H 140/65 04/26/20 00:46 93 L 04/26/20 00:00 100.1 F H 04/25/20 20:00 95 04/25/20 19:00 99.8 F H Weight Admit Weight 63.957 kg Weight 64.1 kg Most Recent Monitor Data Heart Rate from ECG 101 NIBP 124/66 NIBP BP-Mean 74 Respiration from ECG 20 SpO2 97 I&O: 04/24/20 04/25/20 04/26/20 06:59 06:59 06:59 Intake Total 1833 3346.4 Output Total 940 2795 Balance 893 551.4 Result Diagrams: 04/26/20 03:29 04/26/20 03:29 Phys Exam - Physical Examination agitation, but responds to verbal commands HEENT: PERRLA, moist MMs Respiratory: no wheezing, clear to auscultation bilateral tachycardic, no murmurs Gastrointestinal: soft, no distention Musculoskeletal: no edema, pulses present doesn't respond to verbal command with right upper extremity Deviation from normal: unable to assess Skin: no rash, cap refill <2 seconds Dx/Plan - Plan Plan: 74 yo F complaining of R sided facial droop, R sided weakness and aphasia Ischemic infarct of left MCA - status post tPA -R sided deficits difficult to assess on sedation- persistent expressive aphasia & improving facial droop -CT brain: chronic small vessel ischemic changes, cerebral volume loss repeat CT brain 04/24 after 24 hours tPA admin was similar to original -CTA: M2 occlusion of left MCA -Continue Nicardipene (Cardene) drip, titrate with goal of SBP< 140, DBP <90 -additional Labetalol & Hydralazine prn -Neurology on board -Lipids with total chol 133/LDL 52/HDL 40/Triglycerides 203, TSH 0.49, a1c 5.4% -Echo: EF 55-60%, no thrombus seen, valves normal -MRI findings c/w CTA findings -therapy consults once patient able to comply Agitation -Patient on precedex 1.4mcg/min but agitation mildly improved -Suspect opioid and muscle relaxaer withdrawal, started on morphine 04/25, likely more time needed -Trial of decreasing precedex and observing response Afib with RVR -Likely hx of chronic antiarrhythmics -Started on dilt drip @10, currently rate controlled -Will discuss placement of NGT to resume home medications -electrolyte labs pending UTI, uncomplicated -Urine culture positive for E. Coli, fever 100.6F -Start Rocephin (04/25) Rib Fractures -CXR revealed right 3,4,5 rib fractures. no signs of pneumothorax -Aware -morphine started to equal MME she takes at home with oxycodone -REFRIGERATING ENGINEER HEAD reviewed, patient's current Morphine equivalent is 30 units daily when taking PO Oxycodone L1 and L4 compression fractures -known history. Was scheduled for kyphoplasty on Tuesday -fentanyl for pain control, transitioning to Morphine today HTN -hold home meds while on Nicardipine drip Hypothyroidism -resume home Levothyroxine, either 04/28 via IV form or resume PO form if pass Speech eval DVT PPx: s/p tPA Diet: NPO strict Code: FULL PCP: Dafterian Dispo: Stable Addendum - Attending - Attending Attestation Date/Time: 04/26/201825 I personally evaluated the patient and discussed the management with Dr. Charles I agree with the History, Examination, Assessment and Plan documented above with any addition or exceptions noted below - Patient restless. Does not follow commands currently. Tm 100.7 VSS A/P: 1) Left MCA CVA - continue PT/OT. 2) Afib with RVR- overnight events noted. Diltiazem increased. Will place dobhoff to start home med (flecainide and verapamil). 3) Agitation- improved with precedex. Continue current meds.
[2020-04-26 07:23] LABS: Magnesium 1.5 mg/dL (1.6-2.6); Phosphorus 4.4 mg/dL (2.3-4.7)
[2020-04-26] MEDS: cefTRIAXone\\ROCEPHIN 1 GM in Sodium Chloride 0.9% 100 ML IVPB SCH (08:06)
[2020-04-26] MEDS: Aspirin 300 MG Suppository PR SCH (08:09)
--- NOTE | 2020-04-26 11:05 | PRG ---
DATE OF SERVICE: 04/26/2020 SUBJECTIVE: Blood pressure is 120/58, heart rate is 90, respiratory rate is 22. She is tachypneic. She is using extrathoracic muscles. She has signs of muscle weakness. OBJECTIVE: LUNGS: Remarkable for coarse equal breath sounds. HEART: Regular rhythm. ABDOMEN: Soft. EXTREMITIES: Without edema. LABORATORY DATA: White count 8.4, hemoglobin 11.6, and platelets 153. Sodium 143, potassium 3.2, chloride 109, bicarb 20, BUN 11, creatinine 0.72, and glucose 112. I had a long meeting with the daughter, who is a carpet mechanic. She does not want her mother resuscitated. We will change her to a DNR. She wants to bring other family members up to see her. She realizes this may be a terminal event. We will place a Dobhoff tube for medicines and perhaps little nutrition today. Continue supportive care. Her prognosis is extremely poor. Job ID: [id number]
[2020-04-26] MEDS ORDERED: Magnesium Oxide 250 MG TAB PO SCH (11:45)
--- NOTE | 2020-04-26 13:40 | PDOC.BPN ---
- Brief Progress Note Visited with daughter to discuss code status and she had discussed with Dr. Callahan that she would like her mom to be DNAR. Discussed this Afib and that she meets criteria to start anticoagulation due to risk of stroke and daughter at this time would not like to start that for her. She would like a Dobhoff to help with some feeds and restarting her oral medications. Advised to call back if have any further questions.
[2020-04-26] MEDS: Flecainide 50 MG TAB PO SCH ×2 (14:54→21:59)
[2020-04-26] MEDS: hydrOXYzine 25 MG TAB PO SCH (14:54)
[2020-04-26] MEDS: Atorvastatin Calcium 40 MG TAB PO SCH (14:54)
--- NOTE | 2020-04-26 16:29 | EKG ---
Test Reason : STROKE Blood Pressure : / mmHG Vent. Rate : 076 BPM Atrial Rate : 076 BPM P-R Int : 200 ms QRS Dur : 090 ms QT Int : 416 ms P-R-T Axes : 077 -19 025 degrees QTc Int : 468 ms Sinus rhythm with Premature atrial complexes Moderate voltage criteria for LVH, may be normal variant Borderline ECG Confirmed by PARVIZ JAUREGUI DO ([id number]), manager editorial [employer] [place] ([id number]) on 04/26/2020 4:29:25 PM Referred By: Confirmed By:PARVIZ JAUREGUI DO
[2020-04-27] MEDS: Diltiazem 125 MG in Sodium Chloride 0.9% 100 ML IVPB SCH ×2 (02:51→14:05)
[2020-04-27 04:14] LABS: Anion Gap 20 mmol/L (10-20); BUN (Urea Nitrogen) 21 mg/dL (9.8-20.1); Calc. Creatinine Clearance 65 mL/min (70-130); Calcium 8.3 mg/dL (7.8-10.44); Carbon Dioxide 18 mmol/L (23-31); Chloride 110 mmol/L (98-107); Estimated GFR-MDRD 74; Glucose 93 mg/dL (83-110); Magnesium 1.7 mg/dL (1.6-2.6); Phosphorus 3.9 mg/dL (2.3-4.7); Potassium 3.7 mmol/L (3.5-5.1); Sodium 144 mmol/L (136-145)
--- NOTE | 2020-04-27 05:29 | PDOC.FM ---
- Subjective Subjective: Overnight patient went into Afib again with dilt @15. Patient is more calm but still requiring 1.1 of precedex. Per nurse decrease in urine output. Visited with family yesterday to discuss guarded prognosis. - Objective Vital Signs & Weight: Vital Signs (12 hours) Temp Pulse Ox 04/27/20 03:05 93 L 04/27/20 00:00 99.7 F H 04/26/20 20:00 96 04/26/20 19:00 97.0 F L Weight Admit Weight 63.957 kg Weight 63.7 kg Most Recent Monitor Data Heart Rate from ECG 106 NIBP 145/63 NIBP BP-Mean 103 Respiration from ECG 27 SpO2 93 I&O: 04/25/20 04/26/20 04/27/20 06:59 06:59 06:59 Intake Total 1833 3346.4 947 Output Total 940 2795 794 Balance 893 551.4 153 Result Diagrams: 04/26/20 03:29 04/27/20 03:19 Phys Exam - Physical Examination sleeping HEENT: sclera anicteric responds to pain no respiratory distress afib, tachycardic Gastrointestinal: soft Musculoskeletal: no edema, pulses present unable to assess Deviation from normal: cummins present Dx/Plan - Plan Plan: 74 yo F complaining of R sided facial droop, R sided weakness and aphasia 04/27 Update: -Agitation improved, precedex weaned down to 1.1, continue doing so to assess mental status -Reverted back to afib, continue dilt gtt for rate control -Family declined anticoagulation, will re-discuss since back in afib today, on high dose ASA -Reassess neurologic status once able to wean off of precedex as tolerated -Reattempt dobhoff placement -Will discuss goals of care today Ischemic infarct of left MCA - status post tPA -R sided deficits difficult to assess on sedation- persistent expressive aphasia & improving facial droop -CT brain: chronic small vessel ischemic changes, cerebral volume loss repeat CT brain 04/24 after 24 hours tPA admin was similar to original -CTA: M2 occlusion of left MCA -Continue Nicardipene (Cardene) drip, titrate with goal of SBP< 140, DBP <90 -additional Labetalol & Hydralazine prn -Neurology on board -Lipids with total chol 133/LDL 52/HDL 40/Triglycerides 203, TSH 0.49, a1c 5.4% -Echo: EF 55-60%, no thrombus seen, valves normal -MRI findings c/w CTA findings Agitation, improved -Likely from opioid withdrawal, no on scheduled morphine -Continue precedex wean as tolerated Afib with RVR -Likely hx of chronic antiarrhythmics -continueilt drip @15, currently rate controlled -Will discuss placement of NGT to resume home medications-unable to access yesterday, will try today UTI, uncomplicated -Urine culture positive for E. Coli, fever 100.6F -Start Rocephin (04/25), can stop after 3-5 day course pending clinical status Rib Fractures -CXR revealed right 3,4,5 rib fractures. no signs of pneumothorax -Aware -morphine started to equal MME she takes at home with oxycodone -[employer]ERICAN SIGN LANGUAGE TEACHER reviewed, patient's current Morphine equivalent is 30 units daily when taking PO Oxycodone L1 and L4 compression fractures -known history. Was scheduled for kyphoplasty on Tuesday -fentanyl for pain control, transitioning to Morphine today HTN -hold home meds while on Nicardipine drip Hypothyroidism -Hold synthroid, good for 5 days, DVT PPx: hold (per family) Diet: NPO strict Code: FULL PCP: Krupaterian Dispo: Stable Addendum - Attending - Attending Attestation Date/Time: 04/27/20 3657 I personally evaluated the patient and discussed the management with Dr. Charles I agree with the History, Examination, Assessment and Plan documented above with any addition or exceptions noted below - Patient currently resting; still with episodes of restlessness. Still on precedex. Afebrile VSS. A/P: 1) Left MCA CVA with expressive aphasia and right sided deficits- BP improved. weaned off cardene. Continue to discuss with family goals of care; consideration for comfort care. Will re-attempt to place dobhoff for medication administration and tube feeds. 2) Agiltation- continuing to require precedex. Combination of with drawal from meds as well as CVA as reason. Continue precedex and ativan. 3) HTN- improved; continue current meds.
[2020-04-27] MEDS: Morphine 4 MG/ML VIAL SLOW IVP SCH ×3 (07:44→16:55)
[2020-04-27] MEDS: cefTRIAXone\\ROCEPHIN 1 GM in Sodium Chloride 0.9% 100 ML IVPB SCH (07:44)
[2020-04-27] MEDS: Lorazepam 2 MG/ML VIAL SLOW IVP PRN ×3 (09:02→17:21)
--- NOTE | 2020-04-27 10:34 | RAD ---
EXAM: Abdomen one view: HISTORY: Feeding tube placement position COMPARISON: None FINDINGS: Dobbhoff feeding tube noted with the tip extending into the region of the body/antrum of the stomach. No evidence for large or small bowel obstruction. No free intraperitoneal air or extraluminal gas. Questionable left lower pole renal calculus IMPRESSION: Dobbhoff tube extending in the stomach.
[2020-04-27] MEDS: hydrOXYzine 25 MG TAB PO SCH (10:47)
[2020-04-27] MEDS: Flecainide 50 MG TAB PO SCH (10:47)
[2020-04-27] MEDS ORDERED: Pramipexole Di-HCl 0.25 MG TAB PO PRN (10:47)
[2020-04-27] MEDS: Aspirin 300 MG Suppository PR SCH (10:47)
[2020-04-27] MEDS: Atorvastatin Calcium 40 MG TAB PO SCH (10:47)
[2020-04-27] MEDS: Lactated Ringer's 1,000 ML IV SCH (10:51)
[2020-04-27] MEDS ORDERED: Diltiazem HCl SR 60 mg Capsule PO SCH (14:00)
[2020-04-27] MEDS ORDERED: VENLAFAXINE HCL 75 MG PO SCH (15:00)
[2020-04-27] MEDS: Labetalol HCl 100 MG/20 ML VIAL SLOW IVP PRN ×2 (15:51→18:28)
--- NOTE | 2020-04-27 17:18 | PRG ---
DATE OF SERVICE: 04/27/2020 SUBJECTIVE: Adela Bailey is clinically unchanged. She has a Dobhoff tube in. We are stopping her Precedex today to see if she is more cooperative. Her hemodynamics are unchanged. She is still protecting her airway. OBJECTIVE: VITAL SIGNS: Blood pressure 155/68 this afternoon, respiratory rates in the 20s. LUNGS: Clear. HEART: Regular rhythm. ABDOMEN: Soft. EXTREMITIES: Without edema. NEUROLOGIC: She has not improved. LABORATORY STUDIES: There is no new lab other than electrolytes, which are unchanged essentially. IMPRESSION: 1. Respiratory muscle weakness after cerebrovascular accident. 2. Status post placement of the Dobhoff tube with an x-ray confirming placement in the stomach. 3. Status post tissue plasminogen activator. 4. Do not resuscitate status. PLAN: She could move out of the Critical Care Unit in my opinion for comfort care. She can continue all her current medications in another part of the hospital, but since she is not on pressors, not on drip sedation and there are no plans for mechanical ventilation, she could be cared for in a different noncritical care part of the hospital. Job ID: [id number]
[2020-04-27] MEDS ORDERED: Non-Formulary Item 1 EACH (Buspirone Hcl [Buspirone Hcl] 15 MG Tablet) PO SCH (21:00)
[2020-04-27] MEDS ORDERED: Lorazepam 2 MG/ML VIAL SLOW IVP PRN (21:44)
[2020-04-28] MEDS: busPIRone HCl 5 MG TAB PO SCH ×3 (00:01→22:54)
[2020-04-28] MEDS: Flecainide 50 MG TAB PO SCH ×3 (00:01→22:54)
[2020-04-28] MEDS: Morphine 4 MG/ML VIAL SLOW IVP SCH ×5 (00:02→23:27)
[2020-04-28] MEDS: Lactated Ringer's 1,000 ML IV SCH ×4 (00:04→22:54)
[2020-04-28] MEDS: Labetalol HCl 100 MG/20 ML VIAL SLOW IVP PRN ×5 (00:47→22:52)
[2020-04-28] MEDS: Diltiazem 125 MG in Sodium Chloride 0.9% 100 ML IVPB SCH ×2 (03:42→14:15)
[2020-04-28] MEDS ORDERED: Levothyroxine Sodium 200 MCG VIAL IVP SCH (06:00)
[2020-04-28] MEDS: Levothyroxine 100 MCG SDV IVP SCH (06:03)
--- NOTE | 2020-04-28 06:11 | PDOC.FM ---
- Subjective Subjective: Patient resting in bed. Looks more comfortable. Daughter states she is more comfortable with the lights off but has not spoken since . Overnight, patient in Aflutter with rate in 160s. 10mg Dilt pushed and gtt to 15. As per nursing and daughter report, patient seems to be having seizure like activity where her arm starts to twitch, has nystagmus and draws in legs. Daughter would like to transition patient to at home hospice, as patient verbalized that she wants to go home to daughter last week and she is DNR with a poor prognosis. - Objective MAR Reviewed: Yes Vital Signs & Weight: Vital Signs (12 hours) Temp Pulse Resp BP BP Pulse Ox 04/28/20 06:04 104 H 181/84 H 04/28/20 03:54 109 H 04/28/20 03:31 98.3 F 97 16 152/60 H 94 L 04/28/20 00:47 149 H 04/28/20 00:00 98.2 F 69 16 168/111 H 98 04/27/20 20:00 98.3 F 101 H 16 198/82 H 95 04/27/20 18:28 111 H 170/84 H Weight Admit Weight 63.957 kg Weight 66.723 kg Most Recent Monitor Data Heart Rate from ECG 119 NIBP 185/78 NIBP BP-Mean 94 Respiration from ECG 21 SpO2 94 I&O: 04/26/20 04/27/20 04/28/20 06:59 06:59 06:59 Intake Total 3346.4 1300 1245 Output Total 2795 844 577 Balance 551.4 456 668 Result Diagrams: 04/26/20 03:29 04/27/20 03:19 Phys Exam - Physical Examination Constitutional: NAD Respiratory: no wheezing, clear to auscultation bilateral afib Gastrointestinal: soft Musculoskeletal: no edema, pulses present Deviation from normal: does not respond to commands Skin: no rash, normal turgor Dx/Plan - Plan Plan: 74 yo F complaining of R sided facial droop, R sided weakness and aphasia Ischemic infarct of left MCA - status post tPA -R sided deficits difficult to assess on sedation- persistent expressive aphasia & improving facial droop -CT brain: chronic small vessel ischemic changes, cerebral volume loss repeat CT brain 04/24 after 24 hours tPA admin was similar to original -CTA: M2 occlusion of left MCA -Continue Nicardipene (Cardene) drip, titrate with goal of SBP< 140, DBP <90 -additional Labetalol & Hydralazine prn -Neurology on board -Lipids with total chol 133/LDL 52/HDL 40/Triglycerides 203, TSH 0.49, a1c 5.4% -Echo: EF 55-60%, no thrombus seen, valves normal -MRI findings c/w CTA findings -Precedex gtt d/c on 04/27 Seizure Likey Activity -patient is at high risk for seizure given her recent stroke -will start on Keppra 500mg BID -continue to monitor Agitation, improved -Likely from opioid withdrawal, no on scheduled morphine -Continue precedex wean as tolerated Afib with RVR -Likely hx of chronic antiarrhythmics -continue dilt drip @15, currently rate controlled, increase PO Dilt to 80mg q8H -Family declined anticoagulation -on high dose ASA UTI, uncomplicated -Urine culture positive for E. Coli, fever 100.6F -Start Rocephin (04/25), can stop after 3-5 day course pending clinical status Rib Fractures -CXR revealed right 3,4,5 rib fractures. no signs of pneumothorax -Aware -morphine started to equal MME she takes at home with oxycodone -PROGRAM ARCHITECT reviewed, patient's current Morphine equivalent is 30 units daily when taking PO Oxycodone L1 and L4 compression fractures -known history. Was scheduled for kyphoplasty on Tuesday -fentanyl for pain control, transitioning to Morphine today HTN -hold home meds while on Nicardipine drip Hypothyroidism -Hold synthroid DVT PPx: hold (per family) Diet: NPO strict Code: DNR PCP: Dafterian Dispo: patient's family wants to discuss at home hospice. Patient is stable but prognosis is poor. Follow up with CM and Palliative care. Addendum - Attending - Attending Attestation Date/Time: 04/28/20 [id number] I personally evaluated the patient and discussed the management with Dr. Mcgee. I agree with the History, Examination, Assessment and Plan documented above with any addition or exceptions noted below.
[2020-04-28] MEDS: cefTRIAXone\\ROCEPHIN 1 GM in Sodium Chloride 0.9% 100 ML IVPB SCH (06:48)
[2020-04-28] MEDS ORDERED: Aspirin 325 MG TAB PO SCH (09:00)
[2020-04-28] MEDS ORDERED: Non-Formulary Item 1 EACH (Pregabalin [Pregabalin] 100 MG Capsule) PO SCH (09:00)
[2020-04-28] MEDS ORDERED: PHENAZOPYRIDINE HCL 200 MG PO SCH (09:00)
[2020-04-28] MEDS: hydrOXYzine 25 MG TAB PO SCH (10:12)
[2020-04-28] MEDS: Dicyclomine 20 MG TAB PO SCH (10:12)
[2020-04-28] MEDS: Losartan 25 MG TAB PO SCH (10:15)
[2020-04-28] MEDS: Pregabalin 50 MG CAP PO SCH (10:15)
[2020-04-28] MEDS: Atorvastatin Calcium 40 MG TAB PO SCH (10:15)
[2020-04-28] MEDS: Phenazopyridine HCl 100 MG TAB PO SCH (10:17)
[2020-04-28 11:12] VITALS: BMI 24.5
[2020-04-28] MEDS: Aspirin 300 MG Suppository PR SCH (12:51)
--- NOTE | 2020-04-28 13:26 | PDOC.NEUPN ---
- Subjective Encounter Date: 04/28/20 Subjective: Patient somnolent and seizure activity reported by daughter. She was given ativan and Keppra. - Objective Vital Signs & Weight: Vital Signs (12 hours) Temp Pulse Resp BP BP Pulse Ox 04/28/20 10:34 93 L 04/28/20 08:00 99.7 F H 84 22 H 147/65 H 93 L 04/28/20 06:04 104 H 181/84 H 04/28/20 03:54 109 H 04/28/20 03:31 98.3 F 97 16 152/60 H 94 L Weight Admit Weight 141 lb Weight 147 lb 1.6 oz Most Recent Monitor Data Heart Rate from ECG 119 NIBP 185/78 NIBP BP-Mean 94 Respiration from ECG 21 SpO2 94 I&O: 04/27/20 04/28/20 04/29/20 06:59 06:59 06:59 Intake Total 1300 1245 Output Total 844 577 Balance 456 668 Result Diagrams: 04/26/20 03:29 04/27/20 03:19 Radiology Reviewed by me: Yes EKG Reviewed by me: Yes ROS - Review of Systems ROS unobtainable: due to mental status - Medication Medications: Active Medications Generic Name Dose Route Start Last Admin Trade Name Freq PRN Reason Stop Dose Admin Aspirin 325 mg 04/28/20 09:00 04/28/20 10:13 Aspirin 325 Mg Tab PO 325 mg DAILY LUDA Administration Atorvastatin Calcium 40 mg 04/25/20 09:00 04/28/20 10:15 Atorvastatin Calcium 40 Mg Tab PO 40 mg DAILY LUDA Administration Buspirone HCl 15 mg 04/27/20 21:00 04/28/20 10:12 Buspirone Hcl 5 Mg Tab PO 15 mg BID LUDA Administration Dicyclomine HCl 20 mg 04/28/20 09:00 04/28/20 10:12 Dicyclomine 20 Mg Tab PO 20 mg DAILY LUDA Administration Diltiazem HCl 80 mg 04/28/20 10:00 04/28/20 10:13 Diltiazem Hcl 30 Mg Tablet PER TUBE 80 mg Q8H LUDA Administration Flecainide Acetate 50 mg 04/24/20 21:00 04/28/20 10:15 Flecainide 50 Mg Tab PO 50 mg BID LUDA Administration Hydroxyzine HCl 25 mg 04/25/20 09:00 04/28/20 10:12 Hydroxyzine 25 Mg Tab PO 25 mg DAILY LUDA Administration Dexmedetomidine HCl 400 mcg/ 100 mls @ 0 mls/hr 04/25/20 01:00 04/27/20 08:46 Sodium Chloride IVPB 100 mls INF LUDA Administration Protocol Per Protocol Ceftriaxone Sodium 1 gm/ 100 mls @ 200 mls/hr 04/25/20 07:00 04/28/20 06:48 Sodium Chloride IVPB 100 mls Q24HR LUDA Administration Nicardipine HCl 50 mg/ Sodium 250 mls @ 0 mls/hr 04/25/20 13:45 04/26/20 00:43 Chloride IV 250 mls INF LUDA Administration Protocol As Directed Diltiazem HCl 125 mg/ Sodium 125 mls @ 15 mls/hr 04/26/20 03:45 04/28/20 03:42 Chloride IVPB 125 mls INF LUDA Administration Protocol Lactated Ringer's 1,000 mls @ 100 mls/hr 04/27/20 09:00 04/28/20 12:48 Lactated Ringer's IV 1,000 mls .Q10H LUDA Administration Labetalol HCl 10 mg 04/27/20 18:32 04/28/20 06:04 Labetalol Hcl 100 Mg/20 Ml Vial SLOW IVP 10 mg Q10MIN PRN Administration SBP GREATER THAN 160 Levothyroxine Sodium 25 mcg 04/25/20 06:00 04/25/20 07:06 Levothyroxine Sodium 25 Mcg Tab PO Not Given 0600 LUDA Levothyroxine Sodium 20 mcg 04/28/20 06:00 04/28/20 06:03 Levothyroxine 100 Mcg Sdv IVP 20 mcg 0600 LUDA Administration Lorazepam 1 mg 04/27/20 21:44 04/28/20 00:48 Lorazepam 2 Mg/Ml Vial SLOW IVP 1 mg Q6H PRN Administration Anxiety/Agitation Losartan Potassium 100 mg 04/28/20 09:00 04/28/20 10:15 Losartan 25 Mg Tab PO 100 mg DAILY LUDA Administration Morphine Sulfate 4 mg 04/25/20 12:00 04/28/20 12:49 Morphine 4 Mg/Ml Vial SLOW IVP 4 mg Q6HR LUDA Administration Phenazopyridine HCl 200 mg 04/28/20 09:00 04/28/20 10:17 Phenazopyridine Hcl 100 Mg Tab PO 200 mg DAILY LUDA Administration Pramipexole Dihydrochloride 0.25 mg 04/27/20 10:47 04/28/20 10:22 Pramipexole Di-Hcl 0.25 Mg Tab PO 0.25 mg DAILY PRN Administration Restlessness Pregabalin 100 mg 04/28/20 09:00 04/28/20 10:15 Pregabalin 50 Mg Cap PO 100 mg DAILY LUDA Administration Sterile Water 1.2 ml 04/24/20 22:56 04/24/20 22:55 Sterile Water 10 Ml Vial FS 1.2 ml PRN PRN Administration GEODON RECONST. Venlafaxine HCl 75 mg 04/27/20 15:00 04/28/20 10:12 Venlafaxine Hcl 75 Mg Tab PO 75 mg TID LUDA Administration - Exam General Appearance: ill appearing Eye: PERRL ENT: normocephalic atraumatic Neck: supple Respiratory: CTAB Cardiovascular: RRR Gastrointestinal: soft Extremities: no cyanosis Skin: normal turgor Neurological: no new deficit Musculoskeletal: no muscle wasting PSYCH: somnolent, lethargic Results - Labs Result Diagrams: 04/26/20 03:29 04/27/20 03:19 Lab results: WBC 8.4 thou/uL (4.8-10.8) 04/26/20 03:29 Hgb 11.6 g/dL (12.0-16.0) L 04/26/20 03:29 Hct 33.8 % (36.0-47.0) L 04/26/20 03:29 MCV 93.3 fL (78.0-98.0) 04/26/20 03:29 Plt Count 153 thou/uL (130-400) 04/26/20 03:29 Neutrophils % 68.2 % (42.0-75.0) 04/26/20 03:29 Sodium 144 mmol/L (136-145) 04/27/20 03:19 Potassium 3.7 mmol/L (3.5-5.1) 04/27/20 03:19 Chloride 110 mmol/L (98-107) H 04/27/20 03:19 Carbon Dioxide 18 mmol/L (23-31) L 04/27/20 03:19 BUN 21 mg/dL (9.8-20.1) H 04/27/20 03:19 Creatinine 0.76 mg/dL (0.6-1.1) 04/27/20 03:19 Glucose 93 mg/dL (83-110) 04/27/20 03:19 Calcium 8.3 mg/dL (7.8-10.44) 04/27/20 03:19 Total Bilirubin 0.2 mg/dL (0.2-1.2) 04/23/20 19:14 AST 24 U/L (5-34) 04/23/20 19:14 ALT 16 U/L (8-55) 04/23/20 19:14 Alkaline Phosphatase 81 U/L (40-110) 04/23/20 19:14 Creatine Kinase 67 U/L (29-168) 04/23/20 19:14 Troponin I 0.020 ng/mL (< 0.028) 04/23/20 19:14 Serum Total Protein 6.8 g/dL (6.0-8.3) 04/23/20 19:14 Albumin 3.9 g/dL (3.4-4.8) 04/23/20 19:14 Urine Ketones Negative mg/dL (Negative) 04/23/20 19:53 Urine Blood Negative (Negative) 04/23/20 19:53 Urine Nitrite Negative (Negative) 04/23/20 19:53 Ur Leukocyte Esterase Negative (Negative) 04/23/20 19:53 - EKG Interpretation EKG: atrial fibrillation PN A/P (1) Acute CVA (cerebrovascular accident) Code(s): I63.9 - CEREBRAL INFARCTION, UNSPECIFIED Status: Acute (2) Withdrawal complaint Code(s): R68.89 - OTHER GENERAL SYMPTOMS AND SIGNS Status: Acute (3) Compression fracture of lumbar vertebra Code(s): S32.000A - WEDGE COMPRESSION FRACTURE OF UNSP LUMBAR VERTEBRA, INIT Status: Acute Qualifiers: Encounter type: subsequent encounter Lumbar vertebra fracture level: L1 (4) Hypertension Code(s): I10 - ESSENTIAL (PRIMARY) HYPERTENSION Status: Acute Qualifiers: Hypertension type: unspecified Qualified Code(s): I10 - Essential (primary) hypertension (5) Ribs, multiple fractures Code(s): S22.49XA - MULTIPLE FRACTURES OF RIBS, UNSP SIDE, INIT FOR CLOS FX Status: Acute Qualifiers: Encounter type: initial encounter Fracture type: closed Laterality: bilateral Qualified Code(s): S22.43XA - Multiple fractures of ribs, bilateral, initial encounter for closed fracture - Plan Daily Plan: plan discussed w/ family, PT/OT, speech therapy, DVT proph w/SCDs Ms. Bailey is a 74-year-old female with medical history significant for chronic pain on multiple pain medications and muscle relaxants presented to the emergency room with strokelike symptoms. She is status post TPA and currently somnolent. Seizure activiy witnessed by the daughter over weekend. EEG ongoing. Preliminary read did not show any seizure activity. Continue Keppra 500 mg IV q12. Ativan 2 mg IV for seizures greater than 2 minutes Observe seizure precautions. Head CT reviewed which was negative for acute bleed post TPA. EEG reviewed which was negative for seizure activity. Neurochecks every 4 hours. Continue pain control. 2D echo results reviewed no thrombus or PFO. MRI of the brain when stable to assess acute intracranial process. Telemetry- atrial fibrillation- cardiology is on board. Strict control of blood pressure at this time. Strict control of blood glucose Continue medical management per primary team. Plan discussed in detail with the patient daughter at bedside and also with the nursing staff.
--- NOTE | 2020-04-28 15:41 | PDOC.EEG ---
Neurology EEG Report - Report Report: This EEG was performed using 24 channel [employer] video digital EEG machine with 24 disc electrodes. This was an extended 2 hours 4 minutes of EEG recording. Digital analysis of the EEG was done for Rocael and seizure detection which revealed no abnormalities. Background: The posterior background rhythm is 6-7 Hz. This is a nonsustained posterior background rhythm Photic stimulation: No response seen with photic stimulation. Hyperventilation: Not performed. Sleep: No stage change observed Spells: Frequent shaking spells of the left upper and lower extremities not associated with ictal correlate. EEG diagnosis: Intermittent irregular theta activity seen throughout the recording . Slow nonsustained posterior background rhythm Clinical interpretation: This EEG is consistent with mild to moderate generalized nonspecific cerebral dysfunction. Frequent shaking spells of the left upper and lower extremities not associated with ictal correlate raises suspicion of focal motor seizures emanating from the frontal strip which are difficult to capture on the scalp recording. Clinical correlation is advised..
--- NOTE | 2020-04-28 16:47 | PDOC.FMACP ---
Advance Care Planning - Problem (1) Palliative care encounter Status: Acute Code(s): Z51.5 - ENCOUNTER FOR PALLIATIVE CARE (2) Acute CVA (cerebrovascular accident) Status: Acute Code(s): I63.9 - CEREBRAL INFARCTION, UNSPECIFIED (3) Compression fracture of lumbar vertebra Status: Acute Code(s): S32.000A - WEDGE COMPRESSION FRACTURE OF UNSP LUMBAR VERTEBRA, INIT Qualifiers: Encounter type: subsequent encounter Lumbar vertebra fracture level: L1 (4) Hypertension Status: Acute Code(s): I10 - ESSENTIAL (PRIMARY) HYPERTENSION Qualifiers: Hypertension type: unspecified Qualified Code(s): I10 - Essential (primary) hypertension (5) Ribs, multiple fractures Status: Acute Code(s): S22.49XA - MULTIPLE FRACTURES OF RIBS, UNSP SIDE, INIT FOR CLOS FX Qualifiers: Encounter type: initial encounter Fracture type: closed Laterality: bilateral Qualified Code(s): S22.43XA - Multiple fractures of ribs, bilateral, initial encounter for closed fracture - Note Participants: family, surrogate decision-maker, palliative care Summary: Palliative care addressed Advanced Care Planning with patient daughter, secondary to patient unable to make needs known. Short life review. The patient moved back to her childhood home years ago where she presently lives. She has three children who are active in her life. The diagnosis, prognosis and goals of care were discussed. Appropriate forms and documentation to accomplish the goals of care were discussed. All questions were answered. Elected to transition home with [facility] and manage symptoms in home setting, goal of quality of end of life. Confirmed DNAR status. OOHDNAR to be completed with assistance from Anastacio Prince Registrar Palliative Care. Communicated with Dr Mcgee Please also refer to Le Child RNui ux engineer notes in note section. Time Spent (mins): 40
[2020-04-28] MEDS ORDERED: Scopolamine 1.5 mg/72 hour Patch TD SCH (17:00)
[2020-04-28] MEDS: levETIRAcetam In NaCl (Iso-Os) 1,000 MG in Premix Bag 1 BAG IVPB SCH (22:51)
[2020-04-29] MEDS ORDERED: Lorazepam 2 MG/ML VIAL SLOW IVP SCH ×2 (00:45→13:45)
[2020-04-29] MEDS: Diltiazem 125 MG in Sodium Chloride 0.9% 100 ML IVPB SCH (02:09)
[2020-04-29] MEDS: Morphine 4 MG/ML VIAL SLOW IVP SCH ×3 (05:54→17:17)
[2020-04-29] MEDS: Lorazepam 2 MG/ML VIAL SLOW IVP SCH ×3 (05:55→17:19)
[2020-04-29] MEDS: Levothyroxine 100 MCG SDV IVP SCH (05:55)
[2020-04-29] MEDS: Levothyroxine Sodium 25 MCG TAB PO SCH (05:55)
--- NOTE | 2020-04-29 06:06 | PDOC.FM ---
- Subjective Subjective: Patient resting in bed. She does not respond to verbal commands or withdraw to pain. Daughter decided yesterday for at home hospice and comfort care. Patient pulled Dobhoff last night. Family did not want to replace at that time. Patient went into Aflutter in 100-120s , given 10 dilt push. Converted back to NSR. - Objective MAR Reviewed: Yes Vital Signs & Weight: Vital Signs (12 hours) Temp Pulse Resp BP Pulse Ox 04/29/20 04:12 98.3 F 80 16 124/67 96 04/28/20 22:52 113 H 04/28/20 19:59 98 F 110 H 16 140/90 93 L Weight Admit Weight 63.957 kg Weight 66.723 kg Most Recent Monitor Data Heart Rate from ECG 119 NIBP 185/78 NIBP BP-Mean 94 Respiration from ECG 21 SpO2 94 I&O: 04/27/20 04/28/20 04/29/20 06:59 06:59 06:59 Intake Total 1300 1245 Output Total 844 577 620 Balance 456 668 -620 Result Diagrams: 04/26/20 03:29 04/27/20 03:19 Phys Exam - Physical Examination Constitutional: NAD Respiratory: no wheezing, clear to auscultation bilateral Cardiovascular: RRR, no significant murmur Gastrointestinal: soft Musculoskeletal: pulses present does not respond to commands or withdraw to pain Deviation from normal: does not respond to questions Dx/Plan - Plan Plan: 74 yo F complaining of R sided facial droop, R sided weakness and aphasia Ischemic infarct of left MCA - status post tPA -R sided deficits difficult to assess on sedation- persistent expressive aphasia & improving facial droop -CT brain: chronic small vessel ischemic changes, cerebral volume loss repeat CT brain 04/24 after 24 hours tPA admin was similar to original -CTA: M2 occlusion of left MCA -Continue Nicardipene (Cardene) drip, titrate with goal of SBP< 140, DBP <90 -additional Labetalol & Hydralazine prn -Neurology on board -Lipids with total chol 133/LDL 52/HDL 40/Triglycerides 203, TSH 0.49, a1c 5.4% -Echo: EF 55-60%, no thrombus seen, valves normal -MRI findings c/w CTA findings -Precedex gtt d/c on 04/27 Seizure Likey Activity -patient is at high risk for seizure given her recent stroke -Keppra 1000mg BID -continue to monitor Agitation, improved -Likely from opioid withdrawal -morphine and LUDA Ativan Afib with RVR -Likely hx of chronic antiarrhythmics -continue dilt drip @10, currently rate controlled, PO Dilt 80mg q8H: check in with hospice to see what services they can provide to determine what we are going to continue -Family declined anticoagulation -on high dose ASA UTI, uncomplicated -Urine culture positive for E. Coli, fever 100.6F -Rocephin (04/25), can stop after 3-5 day course pending clinical status -d/c 04/28 Rib Fractures -CXR revealed right 3,4,5 rib fractures. no signs of pneumothorax -Aware -morphine started to equal MME she takes at home with oxycodone -ZIPPER MEASURER reviewed, patient's current Morphine equivalent is 30 units daily when taking PO Oxycodone L1 and L4 compression fractures -known history. Was scheduled for kyphoplasty on Tuesday -fentanyl for pain control, transitioning to Morphine today HTN -hold home meds while on Nicardipine drip Hypothyroidism -Hold synthroid DVT PPx: hold (per family) Diet: NPO Code: DNR PCP: Dafterian Dispo: patient's family wants to pursue home hospice. Patient is stable but prognosis is poor. Follow up with CM and Palliative care. Elected to transition home with [facility] and manage symptoms in home setting, goal of quality of end of life. Confirmed DNAR status. OOHDNAR to be completed with assistance from Anastacio Prince Registrar Palliative Care. Follow up with patients family about replacing the Dobhoff for feeds and meds given wishes to pursue hospice Addendum - Attending - Attending Attestation Date/Time: 04/29/20 [id number] I personally evaluated the patient and discussed the management with Dr. Mcgee. I agree with the History, Examination, Assessment and Plan documented above with any addition or exceptions noted below. Comfort measures. Hoping to discharge home with hospice care today.
[2020-04-29] MEDS: Dicyclomine 20 MG TAB PO SCH (07:55)
[2020-04-29] MEDS: busPIRone HCl 5 MG TAB PO SCH (07:55)
[2020-04-29] MEDS: Flecainide 50 MG TAB PO SCH (07:55)
[2020-04-29] MEDS: hydrOXYzine 25 MG TAB PO SCH (07:56)
[2020-04-29] MEDS: Pregabalin 50 MG CAP PO SCH (07:56)
[2020-04-29] MEDS: Phenazopyridine HCl 100 MG TAB PO SCH (07:56)
[2020-04-29] MEDS: Losartan 25 MG TAB PO SCH (07:56)
[2020-04-29] MEDS ORDERED: CANDESARTAN CILEXETIL 32 MG PER TUBE SCH (09:00)
[2020-04-29] MEDS: levETIRAcetam In NaCl (Iso-Os) 1,000 MG in Premix Bag 1 BAG IVPB SCH (09:06)
[2020-04-29] MEDS: Lactated Ringer's 1,000 ML IV SCH (09:06)
[2020-04-29] MEDS: Lorazepam 2 MG/ML VIAL SLOW IVP PRN ×2 (10:40→13:08)
--- NOTE | 2020-04-29 12:49 | RAD ---
Radiograph abdomen one view: 04/29/2020 12:39 PM HISTORY: 74-year-old female status post Dobbhoff feeding tube placement or manipulation COMPARISON: 04/27/2020 FINDINGS: Whereas previously the tip of Dobbhoff catheter was either in the distal body or antrum of the stomac h, it is now directed superiorly in the fundus. IMPRESSION: Dobbhoff feeding tube in the proximal stomach, with distal tip at fundus
[2020-04-29] MEDS: Labetalol HCl 100 MG/20 ML VIAL SLOW IVP PRN (13:43)
[2020-04-29] MEDS ORDERED: levETIRAcetam 2,000 MG in Sodium Chloride 0.9% 100 ML IVPB SCH (13:45)
--- NOTE | 2020-04-29 14:14 | PDOC.NEUPN ---
- Subjective Encounter Date: 04/29/20 Subjective: Patient continues to have focal motor seizures. Ativan given. - Objective Vital Signs & Weight: Vital Signs (12 hours) Temp Pulse Resp BP BP BP Pulse Ox 04/29/20 13:43 102 H 169/73 H 04/29/20 13:18 98 F 102 H 20 167/78 H 95 04/29/20 09:06 98.4 F 68 20 125/59 L 97 04/29/20 04:12 98.3 F 80 16 124/67 96 Weight Admit Weight 141 lb Weight 146 lb 8 oz Most Recent Monitor Data Heart Rate from ECG 119 NIBP 185/78 NIBP BP-Mean 94 Respiration from ECG 21 SpO2 94 I&O: 04/28/20 04/29/20 04/30/20 06:59 06:59 06:59 Intake Total 1245 Output Total 577 620 Balance 668 -620 Result Diagrams: 04/26/20 03:29 04/27/20 03:19 Radiology Reviewed by me: Yes EKG Reviewed by me: Yes ROS - Review of Systems ROS unobtainable: due to mental status - Medication Medications: Active Medications Generic Name Dose Route Start Last Admin Trade Name Freq PRN Reason Stop Dose Admin Buspirone HCl 15 mg 04/27/20 21:00 04/29/20 07:55 Buspirone Hcl 5 Mg Tab PO Not Given BID LUDA Dicyclomine HCl 20 mg 04/28/20 09:00 04/29/20 07:55 Dicyclomine 20 Mg Tab PO Not Given DAILY [facility] Diltiazem HCl 80 mg 04/28/20 10:00 04/29/20 07:56 Diltiazem Hcl 30 Mg Tablet PER TUBE Not Given Q8H LUDA Flecainide Acetate 50 mg 04/24/20 21:00 04/29/20 07:55 Flecainide 50 Mg Tab PO Not Given BID LUDA Hydroxyzine HCl 25 mg 04/25/20 09:00 04/29/20 07:56 Hydroxyzine 25 Mg Tab PO Not Given DAILY LUDA Dexmedetomidine HCl 400 mcg/ 100 mls @ 0 mls/hr 04/25/20 01:00 04/27/20 08:46 Sodium Chloride IVPB 100 mls INF LUDA Administration Protocol Per Protocol Nicardipine HCl 50 mg/ Sodium 250 mls @ 0 mls/hr 04/25/20 13:45 04/26/20 00:43 Chloride IV 250 mls INF LUDA Administration Protocol As Directed Diltiazem HCl 125 mg/ Sodium 125 mls @ 15 mls/hr 04/26/20 03:45 04/29/20 02:09 Chloride IVPB 125 mls INF LUDA Administration Protocol Lactated Ringer's 1,000 mls @ 100 mls/hr 04/27/20 09:00 04/29/20 09:06 Lactated Ringer's IV 1,000 mls .Q10H LUDA Administration Labetalol HCl 10 mg 04/27/20 18:32 04/29/20 13:43 Labetalol Hcl 100 Mg/20 Ml Vial SLOW IVP 10 mg Q10MIN PRN Administration SBP GREATER THAN 160 Levothyroxine Sodium 25 mcg 04/25/20 06:00 04/29/20 05:55 Levothyroxine Sodium 25 Mcg Tab PO Not Given 0600 LUDA Levothyroxine Sodium 20 mcg 04/28/20 06:00 04/29/20 05:55 Levothyroxine 100 Mcg Sdv IVP 20 mcg 0600 LUDA Administration Lorazepam 1 mg 04/29/20 00:39 04/29/20 13:08 Lorazepam 2 Mg/Ml Vial SLOW IVP 1 mg Q2H PRN Administration Anxiety/Agitation Lorazepam 1 mg 04/29/20 06:00 04/29/20 12:05 Lorazepam 2 Mg/Ml Vial SLOW IVP Not Given Q6HR LUDA Losartan Potassium 100 mg 04/28/20 09:00 04/29/20 07:56 Losartan 25 Mg Tab PO Not Given DAILY [facility] Morphine Sulfate 4 mg 04/25/20 12:00 04/29/20 11:15 Morphine 4 Mg/Ml Vial SLOW IVP 4 mg Q6HR LUDA Administration Phenazopyridine HCl 200 mg 04/28/20 09:00 04/29/20 07:56 Phenazopyridine Hcl 100 Mg Tab PO Not Given DAILY [facility] Pramipexole Dihydrochloride 0.25 mg 04/27/20 10:47 04/28/20 10:22 Pramipexole Di-Hcl 0.25 Mg Tab PO 0.25 mg DAILY PRN Administration Restlessness Pregabalin 100 mg 04/28/20 09:00 04/29/20 07:56 Pregabalin 50 Mg Cap PO Not Given DAILY [facility] Scopolamine 1.5 mg 04/28/20 17:00 04/28/20 17:54 Scopolamine 1.5 Mg/72 Hour Patch TD 1.5 mg Q3D LUDA Administration Sodium Chloride 10 ml 04/23/20 21:25 04/29/20 01:57 Flush - Normal Saline 10 Ml Syringe IVF 10 ml PRN PRN Administration Saline Flush Sterile Water 1.2 ml 04/24/20 22:56 04/24/20 22:55 Sterile Water 10 Ml Vial FS 1.2 ml PRN PRN Administration [facility] [employer] Venlafaxine HCl 75 mg 04/27/20 15:00 04/29/20 07:56 Venlafaxine Hcl 75 Mg Tab PO Not Given TID LUDA - Exam General Appearance: ill appearing Eye: PERRL ENT: normocephalic atraumatic Neck: supple Respiratory: CTAB Cardiovascular: RRR Gastrointestinal: soft Extremities: no cyanosis Skin: normal turgor Neurological: no new deficit Musculoskeletal: no muscle wasting PSYCH: not oriented Results - Labs Result Diagrams: 04/26/20 03:29 04/27/20 03:19 Lab results: WBC 8.4 thou/uL (4.8-10.8) 04/26/20 03:29 Hgb 11.6 g/dL (12.0-16.0) L 04/26/20 03:29 Hct 33.8 % (36.0-47.0) L 04/26/20 03:29 MCV 93.3 fL (78.0-98.0) 04/26/20 03:29 Plt Count 153 thou/uL (130-400) 04/26/20 03:29 Neutrophils % 68.2 % (42.0-75.0) 04/26/20 03:29 Sodium 144 mmol/L (136-145) 04/27/20 03:19 Potassium 3.7 mmol/L (3.5-5.1) 04/27/20 03:19 Chloride 110 mmol/L (98-107) H 04/27/20 03:19 Carbon Dioxide 18 mmol/L (23-31) L 04/27/20 03:19 BUN 21 mg/dL (9.8-20.1) H 04/27/20 03:19 Creatinine 0.76 mg/dL (0.6-1.1) 04/27/20 03:19 Glucose 93 mg/dL (83-110) 04/27/20 03:19 Calcium 8.3 mg/dL (7.8-10.44) 04/27/20 03:19 Total Bilirubin 0.2 mg/dL (0.2-1.2) 04/23/20 19:14 AST 24 U/L (5-34) 04/23/20 19:14 ALT 16 U/L (8-55) 04/23/20 19:14 Alkaline Phosphatase 81 U/L (40-110) 04/23/20 19:14 Creatine Kinase 67 U/L (29-168) 04/23/20 19:14 Troponin I 0.020 ng/mL (< 0.028) 04/23/20 19:14 Serum Total Protein 6.8 g/dL (6.0-8.3) 04/23/20 19:14 Albumin 3.9 g/dL (3.4-4.8) 04/23/20 19:14 Urine Ketones Negative mg/dL (Negative) 04/23/20 19:53 Urine Blood Negative (Negative) 04/23/20 19:53 Urine Nitrite Negative (Negative) 04/23/20 19:53 Ur Leukocyte Esterase Negative (Negative) 04/23/20 19:53 - EKG Interpretation EKG: Atrial fibrillation PN A/P (1) Acute CVA (cerebrovascular accident) Code(s): I63.9 - CEREBRAL INFARCTION, UNSPECIFIED Status: Acute (2) Withdrawal complaint Code(s): R68.89 - OTHER GENERAL SYMPTOMS AND SIGNS Status: Acute (3) Compression fracture of lumbar vertebra Code(s): S32.000A - WEDGE COMPRESSION FRACTURE OF UNSP LUMBAR VERTEBRA, INIT Status: Acute Qualifiers: Encounter type: subsequent encounter Lumbar vertebra fracture level: L1 (4) Hypertension Code(s): I10 - ESSENTIAL (PRIMARY) HYPERTENSION Status: Acute Qualifiers: Hypertension type: unspecified Qualified Code(s): I10 - Essential (primary) hypertension (5) Ribs, multiple fractures Code(s): S22.49XA - MULTIPLE FRACTURES OF RIBS, UNSP SIDE, INIT FOR CLOS FX Status: Acute Qualifiers: Encounter type: initial encounter Fracture type: closed Laterality: bilateral Qualified Code(s): S22.43XA - Multiple fractures of ribs, bilateral, initial encounter for closed fracture - Plan Daily Plan: plan discussed w/ family, PT/OT, speech therapy, DVT proph w/SCDs Consults: Hospice Ms. Bailey is a 74-year-old female with medical history significant for chronic pain on multiple pain medications and muscle relaxants presented to the emergency room with stroke-like symptoms. She is status post TPA and is currently somnolent. She continues to have intermittent focal motor seizures. Loaded with 2 g of Keppra IV now and then increase maintenance dose of Keppra 1500 mg twice daily. Ativan 2 mg IV for seizures greater than 2 minutes Observe seizure precautions. Head CT reviewed which was negative for acute bleed post TPA. EEG completed yesterday was reviewed which was negative for ongoing. Neurochecks every 4 hours. Continue pain control. 2D echo results reviewed no thrombus or PFO. MRI of the brain when stable to assess acute intracranial process. Telemetry- atrial fibrillation- cardiology is on board regarding management. Strict control of blood pressure at this time. Strict control of blood glucose Continue medical management per primary team. Continue comfort measures. Case management on board regarding discharge planning. Family at opted for home with hospice. Possible discharge today. Plan discussed in detail with the patient daughter at bedside , nursing staff carlos david the primary team.
[2020-04-29] MEDS ORDERED: Diltiazem 125 MG in Sodium Chloride 0.9% 100 ML IVPB SCH (15:00)
[2020-04-29 17:03] VITALS: BP 135/63; TEMP 98.1
[2020-04-29] MEDS ORDERED: levETIRAcetam In NaCl (Iso-Os) 1,500 MG in Premix Bag 1 BAG IVPB SCH (21:00)
--- NOTE | 2020-04-30 14:50 | DIS ---
DATE OF ADMISSION: 04/23/2020 DATE OF DISCHARGE: 04/29/2020 RESIDENT: Alie Mcgee MD, PGY-1 ADMITTING ATTENDING: Ran Evans MD DISCHARGE ATTENDING: Nitin Kumar MD CONSULTS: 1. Neurology. 2. Pulmonology. 3. Case Management. 4. OT. 5. Palliative care. 6. Stroke team. 7. Speech eval. PROCEDURES: 1. Brain CT, which showed no acute intracranial abnormality. Chronic small vessel ischemic changes and cerebral volume loss. 2. CT angiography, which showed occlusion of the proximal M2 segment of the left middle cerebral artery and CT tetlin of Gabriel angio with contrast, which showed occlusion of the proximal M2 segment of the left middle cerebral artery. 3. Chest x-ray which showed mildly displaced lateral right 3rd, 4th, and 5th rib fractures. No obvious pneumothorax and there is no pleural effusion identified. 4. Electrocardiogram which showed sinus rhythm with premature atrial complexes, moderate voltage criteria for left ventricular hypertrophy. 5. Brain MRI on 04/24, which showed scattered areas of restricted diffusion on the left, consistent with left MCA infarction. Markedly limited study secondary to motion. Somewhat linear subcentimeter focus of blooming artifact on the left, likely correlate with clot within the left M2 branch. Followup head CT suggested secondary to the less likely possibility of small volume intracranial hemorrhage. 6. Brain CT on 04/24 by which showed no intracranial hemorrhages seen. Questionable subtle new hypodensity within the left MCA territory which could reflect interval infarction. On 04/25, repeat CT of the brain showed no findings of acute intracranial hemorrhage. A subtle low-attenuation focus within the insular region of the left cerebral hemisphere without significant progression from prior exam on 04/24/2020. Prior surgical changes of the paranasal sinuses. 7. Echocardiogram which showed ejection fraction of 55% to 60%, and no thrombus in the cardiac chambers. 8. On 04/27, a Dobhoff feeding tube was inserted and followup x-ray showed it extending to the stomach. 9. The EEG was done by Neurology, which showed [id number] generalized nonspecific cerebral dysfunction. Frequent shaking spells of the left upper and lower extremities. Not associated with ictal raises suspicion of focal motor seizures from the frontal strip which was difficult to capture on the scalp recording. Clinical correlation is advised. PRIMARY DIAGNOSIS: Ischemic infarct of left MCA, status post tPA. SECONDARY DIAGNOSES: 1. Seizures likely secondary to stroke. 2. Agitation secondary to opioid withdrawal. 3. Atrial fibrillation with RVR. 4. UTI. 5. Rib fractures. 6. L1 and L4 compression fractures. 7. Hypertension. 8. Hypothyroidism. DISCHARGE MEDICATIONS: 1. Morphine 4 mg IV q.6 hours as needed. 2. Labetalol 10 mg IV every 10 minutes as needed for SBP greater than 160. 3. Ativan 1 mg IV every 2 hours as needed. 4. Bentyl 20 mg per tube daily. 5. Cardizem 80 mg per tube every 8 hours. 6. Diltiazem 125 mg IV piggyback continuous infusion at 10 mL an hour. 7. Scopolamine 1.5 mg transdermal patch every 3 hours as needed. 8. Keppra 1500 mg IV b.i.d. 9. Verapamil 240 mg per tube at bedtime. 10. Tizanidine 2 mg p.o. at bedtime. 11. Pramipexole 0.25 mg p.o./per tube daily as needed. 12. Zofran ODT 4 mg sublingual every 8 hours as needed. 13. Fluticasone one spray to each naris daily. 14. Flecainide 50 mg p.o./per tube b.i.d. 15. Candesartan 32 mg per tube daily. 16. Oxycodone 5 mg p.o. daily every 8 hours as needed for pain. 17. Hydroxyzine 25 mg per tube daily. 18. Mucinex 600 mg per tube b.i.d. 19. Buspirone 15 mg per tube b.i.d. 20. Venlafaxine 75 mg per tube t.i.d. 21. Pregabalin 100 mg per tube daily. 22. Phenazopyridine 200 mg per tube daily. 23. Metaxalone 800 mg per tube b.i.d. 24. Meloxicam 7.5 mg per tube b.i.d. 25. Levothyroxine 25 mcg per tube daily. 26. Diphenoxylate 2 each per tube daily. 27. Baclofen 10 mg per tube b.i.d. 28. Albuterol sulfate 90 mcg inhalation daily as needed. DISCONTINUED MEDICATIONS: 1. Chromium picolinate 1000 mcg p.o. daily. 2. Atorvastatin 40 mg p.o. daily. 3. Aspirin 81 mg p.o. daily. 4. Tamoxifen citrate 20 mg p.o. at bedtime. 5. Ferrous sulfate 325 mg p.o. daily. 6. Calcium citrate/vitamin D3 HPI/HOSPITAL COURSE: The patient is a 74-year-old female, who presented via EMS after an unwitnessed fall at home. Daughter who was with the patient heard a noise and found the patient lying on the floor of her bedroom. The right side of the patient's face was drooping and drooling and unable to form words. The patient's other daughter who is the medical power of claim attorney was present during interview as the patient was unable to cooperate. She explains her mother has no history of stroke other than a possible TIA many years ago. The patient usually performs all of her own ADLs. The patient was unable to communicate effectively due to expressive aphasia but did express that she was in pain. Daughter states that the patient only has chronic back problems and known L1 and L4 compression fracture. In the ED, CTA revealed an occlusion of the left MCA and tPA therapy was initiated at that time. Neurology and the Stroke Team were consulted. Patient was initially able to answer in short and brief 2 to 3 word responses and able to answer yes and no to most questions appropriately, and she did seem to get visually frustrated when trying to respond. Her eyes were initially able to track. The patient was initially initiated on a Cardene drip to keep blood pressures under control with an SBP of less than 180 and DBP of less than 95. The patient was increasingly agitated, so many different medications were trialed including Ativan and Geodon, and at one time. Haldol was also trialed without relief of agitation. Therefore, patient was placed on Precedex drip. The patient was found to be in AFib with RVR on 04/26 with a heart rate of 168. At this point, the patient received 10 of diltiazem and was started on a diltiazem drip, which seemed to help. The patient remained on Precedex drip because of agitation and p.r.n. Ativan was also needed. The patient's ability to interact with others decreased and the patient was no longer able to speak or communicate, even once off the Precedex drip. She could not follow commands or respond to pain on 04/28 and the patient's daughter after speaking with primary medical team and specialist involved, agreed that the patient's prognosis was poor and at that time agreed to make her DNR and decided to have patient transitioned to hospice. During this transition time, we tried to transition patient to p.o. diltiazem; however, the patient's heart rate and rhythm were not being controlled, and she remained in AFib with RVR, so decision was made to send patient home on hospice with Cardene drip and hospice physician would take over at that time. A Dobhoff was placed. Comfort care began to be initiated while in the hospital; however, primary care team deferred this management to home hospice physician once the patient gets home. DISPOSITION: Poor prognosis. Patient's condition is guarded at time of discharge. DISCHARGE INSTRUCTIONS: 1. Location, home hospice. 2. Diet, comfort feeds as indicated or desired by family's wishes. 3. Activity, bed ridden. 4. The patient will be followed with home hospice at this time. Job ID: [id number] [id number]
== END 2020-04-29 19:23 | disposition hospice, home (50) | DRG 62 ==
LOC: ERS 19:07 → CCU 20:47 → ERHOLD 21:01 → CCU 04-24 10:51 → 2SE 04-27 19:49
PROVIDERS: ADMIT Family Medicine; ATTEND Family Medicine
PROC: 3E03317 Introduction of Other Thrombolytic into Peripheral Vein, Percutaneous Approach (ICD-10-PCS; principal; 2020-04-23)
PROC: 0DH68UZ Insertion of Feeding Device into Stomach, Via Natural or Artificial Opening Endoscopic (ICD-10-PCS; 2020-04-27)
DX: I63.512 Cerebral infarction due to unspecified occlusion or stenosis of left middle cerebral artery (principal); S22.43XA Multiple fractures of ribs, bilateral, initial encounter for closed fracture; F11.23 Opioid dependence with withdrawal; G81.91 Hemiplegia, unspecified affecting right dominant side; N39.0 Urinary tract infection, site not specified; G40.109 Localization-related (focal) (partial) symptomatic epilepsy and epileptic syndromes with simple partial seizures, not intractable, without status epilepticus; Z66 Do not resuscitate; Z51.5 Encounter for palliative care; R47.01 Aphasia; Z20.828 Contact with and (suspected) exposure to other viral communicable diseases; R29.810 Facial weakness; G47.30 Sleep apnea, unspecified; E78.00 Pure hypercholesterolemia, unspecified; K21.9 Gastro-esophageal reflux disease without esophagitis; I10 Essential (primary) hypertension; E03.9 Hypothyroidism, unspecified; W19.XXXA Unspecified fall, initial encounter; Z96.659 Presence of unspecified artificial knee joint; R45.1 Restlessness and agitation; B96.20 Unspecified Escherichia coli [E. coli] as the cause of diseases classified elsewhere; I48.91 Unspecified atrial fibrillation; S32.010D Wedge compression fracture of first lumbar vertebra, subsequent encounter for fracture with routine healing; S32.040D Wedge compression fracture of fourth lumbar vertebra, subsequent encounter for fracture with routine healing; Z91.041 Radiographic dye allergy status; Z91.013 Allergy to seafood; Z79.82 Long term (current) use of aspirin; Z79.899 Other long term (current) drug therapy; Z85.3 Personal history of malignant neoplasm of breast; Z90.49 Acquired absence of other specified parts of digestive tract; Z90.710 Acquired absence of both cervix and uterus; Y92.003 Bedroom of unspecified non-institutional (private) residence as the place of occurrence of the external cause; Z90.13 Acquired absence of bilateral breasts and nipples
CPT/HCPCS: 36415; 36416; 51701; 70450; 70496; 70498; 70551; 71045; 74018; 80048; 80053; 80061; 81003; 82550; 83036; 83735; 84100; 84443; 84484; 85025; 85610; 85730; 87077; 87086; 87186; 87635; 93005; 93010; 93306; 95712; 95819; 95957; 96365; 96374; 96375; 96376; J0696; J1200; J1630; J1953; J2060; J2270; J2930; J2997; J3010; J3480; J3486; J3490; J7050; Q9967; S0028; U0003